=== PATIENT | male | born 1980 | race Caucasian/White ===

== ENCOUNTER 2016-08-02 | Outpatient (CLI) | payer MEDICAID | END 2016-08-02 12:57 | disposition critical access hospital (66) | DX: R44.8 Other symptoms and signs involving general sensations and perceptions (principal) | CPT/HCPCS: A0425; A0429 ==

== ENCOUNTER 2016-08-02 13:03 | Emergency (ER) | payer MEDICAID ==
[2016-08-02] MEDS ORDERED: diazePAM INJ 5 MG/ML SYRINGE IM STA (13:07)
[2016-08-02] MEDS ORDERED: diazePAM INJ 5 MG/ML SYRINGE ONE (13:09)
[2016-08-02] MEDS ORDERED: OLANZapine 10 MG VIAL IM STA (13:47)
[2016-08-02] MEDS ORDERED: WATER FOR INJECTION,STERILE 10 ML ONE (13:52)
[2016-08-02] MEDS ORDERED: OLANZapine 10 MG VIAL IM ONE (13:52)
== END 2016-08-02 15:05 | disposition home or self-care (01) ==
DX: F16.980 Hallucinogen use, unspecified with hallucinogen-induced anxiety disorder (principal); R03.0 Elevated blood-pressure reading, without diagnosis of hypertension; F17.200 Nicotine dependence, unspecified, uncomplicated

== ENCOUNTER 2016-12-05 12:31 | Emergency (ER) | payer MEDICAID ==
[2016-12-05] MEDS ORDERED: cefTRIAXone 1 GM VIAL IM STA (13:37)
--- NOTE | 2016-12-05 13:39 | ED Physician Documentation ---
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 He has now developed redness and markedly increased swelling as well as pain to both lower calves. He has had the swelling previously but never as bad and he has not had the redness ever. He does not feel like he has a fever but he does feel a little "sick" Review of Systems Constitutional: reports: Myalgias, Fatigue. denies: Fever Eyes: denies: Decreased vision Ears: denies: Ear pain Nose: denies: Congestion Throat: denies: Sore throat Cardiac: denies: Chest pain / pressure Respiratory: denies: Cough GI: denies: Abdominal Pain, Nausea, Vomiting : denies: Dysuria, Frequency Skin: reports: Rash (To the calves bilaterally.) Musculoskeletal: reports: Extremity pain, Extremity swelling Neurologic: denies: Generalized weakness, Focal weakness, Numbness PD PAST MEDICAL HISTORY - Past Medical History Past Medical History: No Cardiovascular: None Respiratory: None Neuro: None Endocrine/Autoimmune: None GI: None : None HEENT: None Psych: None Musculoskeletal: None Derm: None - Past Surgical History Past Surgical History: Yes General: Appendectomy, Splenectomy, Other - Present Medications Home Medications: Ambulatory Orders Medication Instructions Recorded Confirmed Amox/Clav 875/125 [Augmentin] 1 each PO Q12H #20 tablet 12/05/16 Multivitamin [Multivitamins] 1 tab PO DAILY 12/05/16 12/05/16 - Allergies Allergies/Adverse Reactions: Allergies Allergy/AdvReac Type Severity Reaction Status Date / Time No Known Drug Allergies Allergy Verified 12/05/16 12:41 - Social History Does the pt smoke?: Yes Smoking Status: Current every day smoker Does the pt drink ETOH?: Yes Does the pt have substance abuse?: No - Immunizations Immunizations are current?: Yes - POLST Patient has POLST: No PD ED PE NORMAL - Vitals Vital signs reviewed: Yes (hypertensive ) - General General: Alert and oriented X 3, No acute distress, Well developed/nourished - HEENT HEENT: Atraumatic, PERRL - Respiratory Respiratory: No respiratory distress - Derm Derm: Normal color, Warm and dry - Extremities Extremities: No deformity, Other (There is edema to both legs and both feet and there is anterior blanching erythema to both calves the left is higher on the calf and just below the knee. ) - Neuro Neuro: Alert and oriented X 3, No motor deficit, No sensory deficit, Normal speech - Psych Psych: Normal mood, Normal affect Results - Vitals Vitals: Vital Signs - 24 hr 12/05/16 12/05/16 12:39 13:16 Temperature 37.4 C Heart Rate 99 115 H Respiratory 18 24 Rate Blood Pressure 153/92 H 126/67 O2 Saturation 99 94 Oxygen O2 Source Room air - Labs Labs: Laboratory Tests 12/05/16 12:53 POC Whole Bld Glucose 91 PD MEDICAL DECISION MAKING - ED course Complexity details: reviewed results, re-evaluated patient, considered differential, d/w patient, d/w family ED course: 36 y/o male with dependant edema and cellulitis is given rocephin IM and we will start him on some augmentin at home. Departure - Departure Disposition: Home, Self Care Clinical Impression: Cellulitis Qualifiers: Site of cellulitis: extremity Site of cellulitis of extremity: lower extremity Laterality: unspecified laterality Qualified Code(s): L03.119 - Cellulitis of unspecified part of limb Condition: Stable Instructions: ED Infec Skin Cellulitis Follow-Up: Otto Hines MD [Primary Care Provider] - Prescriptions: Amox/Clav 875/125 [Augmentin] 1 each PO Q12H #20 tablet Forms: Activity restrictions
[2016-12-05] MEDS ORDERED: cefTRIAXone 1 GM VIAL ONE (13:40)
[2016-12-05] MEDS ORDERED: LIDOCAINE 1% 2 ML VIAL ONE (13:40)
[2016-12-05 14:32] VITALS: BP 140/86
== END 2016-12-05 14:32 | disposition home or self-care (01) ==
LOC: ED 12:31
DX: L03.116 Cellulitis of left lower limb (principal); L03.115 Cellulitis of right lower limb; F17.200 Nicotine dependence, unspecified, uncomplicated
CPT/HCPCS: 96372; 99283

== ENCOUNTER 2016-12-14 19:38 | Outpatient (CLI) | payer MEDICAID ==
--- NOTE | 2016-12-14 21:37 | Ultrasound Preliminary Report ---
Exam: US Duplex Ext Veins Bilateral IMPRESSION: 1. No evidence for deep venous thrombosis bilaterally. 2. Peroneal veins poorly seen. [facility] The call report notification system was initiated by Dr. Tova Suh at 21:12 hrs on 12/14/16. The above findings were discussed with provider Azael Jay by Dr. Tova Suh at 21:35 hrs on 12/14/16. SITE ID: [id number]
--- NOTE | 2016-12-14 21:45 | Ultrasound Report ---
EXAM: BILATERAL LOWER EXTREMITY VENOUS ULTRASOUND EXAM DATE: 12/14/2016 09:04 PM. CLINICAL HISTORY: Leg pain, bilateral. COMPARISON: None. TECHNIQUE: Real-time sonographic vascular imaging was performed by the slat pickler through the lower extremities utilizing both color-flow and Doppler spectral analysis. Multiple parts sales representative static i mages were saved for review. FINDINGS: Right: Common Femoral Vein (CFV): Normal. CFV-GSV Junction: Normal. Profunda Femoral Vein (PFV): Normal. Femoral Vein (FV) Prox: Normal. Femoral Vein (FV) Mid: Normal. Femoral Vein (FV) Dist: Normal. Popliteal Vein: Normal. Posterior Tibial Veins: Normal. Peroneal Veins: Not well seen. Left: Common Femoral Vein (CFV): Normal. CFV-GSV Junction: Normal. Profunda Femoral Vein (PFV): Normal. Femoral Vein (FV) Prox: Normal. Femoral Vein (FV) Mid: Normal. Femoral Vein (FV) Dist: Normal. Popliteal Vein: Normal. Posterior Tibial Veins: Normal. Peroneal Veins: Not well seen. Other: None. IMPRESSION: 1. No evidence for deep venous thrombosis bilaterally. 2. Peroneal veins poorly seen. [facility] The call report notification system was initiated by Dr. Tova Suh at 21:12 hrs on 12/14/16. The above findings were discussed with provider Azael Jay by Dr. Tova Suh at 21:35 hrs on 12/14/16. Referring Provider Line: [phone] SITE ID: [id number]
== END 2016-12-14 19:39 | disposition home or self-care (01) ==
LOC: DI 19:38
PROVIDERS: ATTEND Physician Assistant
DX: M79.606 Pain in leg, unspecified (principal)
CPT/HCPCS: 93970

== ENCOUNTER 2017-02-15 23:45 | Emergency (ER) | payer MEDICAID ==
--- NOTE | 2017-02-16 01:15 | ED Physician Documentation ---
History of Present Illness - Stated complaint Stated Complaint: LEG PX - Chief complaint Chief Complaint: Ext Problem - History obtained from History obtained from: Patient - History of Present Illness Timing: How many weeks ago (6) Improved by: no ameliorating factors Worsened by: no apparent exacerbating factors - Additonal information Additional information: c/o 6 weeks of painful BLE swelling, mild abdominal distention. He has seen his PMD for this and initially was prescribed antibiotic for possible infectious cause, also had US (negative for "blood clots", per patient); he was then prescribed lasix 3 weeks ago but has not had improvement. Denies abdominal pain. Has appointment with PMD scheduled for 11 AM 02/16 Review of Systems Constitutional: denies: Fever, Chills, Sweats Cardiac: denies: Chest pain / pressure Respiratory: denies: Dyspnea GI: reports: Abdominal Swelling. denies: Abdominal Pain, Nausea, Vomiting Musculoskeletal: reports: Extremity pain, Extremity swelling PD PAST MEDICAL HISTORY - Past Medical History Past Medical History: Yes Cardiovascular: None Respiratory: None Neuro: None Endocrine/Autoimmune: None GI: None : None HEENT: None Psych: None Musculoskeletal: None Derm: None - Past Surgical History Past Surgical History: Yes General: Appendectomy, Splenectomy, Other - Present Medications Home Medications: Ambulatory Orders Medication Instructions Recorded Confirmed Furosemide [Lasix] 1 tab PO DAILY 02/15/17 02/15/17 - Allergies Allergies/Adverse Reactions: Allergies Allergy/AdvReac Type Severity Reaction Status Date / Time No Known Drug Allergies Allergy Verified 02/15/17 23:51 - Social History Does the pt smoke?: Yes Smoking Status: Current every day smoker Does the pt drink ETOH?: Yes Does the pt have substance abuse?: No - Immunizations Immunizations are current?: Yes - POLST Patient has POLST: No PD ED PE NORMAL - Vitals Vital signs reviewed: Yes - General General: Alert and oriented X 3, No acute distress, Well developed/nourished - Cardiac Cardiac: RRR, No murmur - Respiratory Respiratory: No respiratory distress, Clear bilaterally - Abdomen Abdomen: Soft - Back Back: No CVA TTP - Derm Derm: Normal color PD ED PE EXPANDED - Eyes Eyes: Scleral icterus - Abdomen Abdomen: Distended. No: Tender to palpation - Extremities Extremities: Pedal edema bilateral (pitting BLE edema distal to knees) Results - Vitals Vitals: Vital Signs - 24 hr 02/15/17 02/16/17 23:52 03:26 Temperature 37.0 C 36.7 C Heart Rate 78 96 Respiratory 18 15 Rate Blood Pressure 140/91 H 141/66 H O2 Saturation 100 96 Oxygen O2 Source Room air - Labs Labs: Laboratory Tests 02/16/17 02/16/17 02/16/17 01:40 01:40 01:40 WBC 13.2 H RBC 3.40 L Hgb 12.9 L Hct 36.7 L MCV 108.1 H MCH 37.9 H MCHC 35.0 RDW 17.1 H Plt Count 156 MPV 8.5 Neut # Not Reportable Lymph # Not Reportable [place] # Not Reportable Eos # Not Reportable Baso # Not Reportable Absolute Nucleated RBC Not Reportable Total Counted 100 Band Neuts % (Manual) 6 Neutrophils # (Manual) 8.4 H Lymphocytes # (Manual) 2.6 Monocytes # (Manual) 1.5 H Eosinophils # (Manual) 0.4 Basophils # (Manual) 0.3 H Nucleated RBCs Not Reportable Differential Comment MANUAL DIFFERENTIAL Platelet Estimate NORMAL (130-450,000) RBC Morph Micro Appear NORMAL APPEARANCE Sodium 133 L Potassium 3.5 Chloride 102 Carbon Dioxide 24 Anion Gap 7.0 BUN 7 Creatinine 0.5 L Estimated GFR (MDRD) 190 Glucose 87 Calcium 7.7 L Total Bilirubin 8.2 H AST 165 H ALT 56 Alkaline Phosphatase 212 H B-Natriuretic Peptide 144 H Total Protein 8.2 Albumin 1.8 L Globulin 6.3 H Albumin/Globulin Ratio 0.3 L Lipase 50 PD MEDICAL DECISION MAKING - ED course Complexity details: reviewed results, re-evaluated patient, considered differential, d/w patient Departure - Departure Disposition: 01 Home, Self Care Clinical Impression: Hyperbilirubinemia Condition: Good Instructions: ED Edema Legs Bilateral Discharge Date/Time: 02/16/17 03:38
[2017-02-16 01:45] LABS: BASOPHILS % (AUTO) 1.3 %; EOSINOPHILS % (AUTO) 1.6 %; HCT - HEMATOCRIT 36.7 % (42.0-52.0); HGB - HEMOGLOBIN 12.9 g/dL (14.0-18.0); LYMPHOCYTES % (AUTO) 28.3 %; MEAN CORPUSCULAR HEMOGLOBIN 37.9 pg (27.0-31.0); MEAN CORPUSCULAR VOLUME 108.1 fL (80.0-94.0); MEAN PLATELET VOLUME 8.5 fL (7.4-11.4); MONOCYTES % (AUTO) 17.5 %; NEUTROPHILS % (AUTO) 51.3 %; RED CELL DISTRIBUTION WIDTH 17.1 % (12.0-15.0); UNCORRECTED WHITE BLOOD COUNT 13.2 x10^3/uL; WHITE BLOOD COUNT 13.2 x10^3/uL (4.8-10.8)
[2017-02-16 01:57] LABS: ALBUMIN/GLOBULIN RATIO 0.3 (1.0-2.2); BILIRUBIN,TOTAL 8.2 mg/dL (0.2-1.0); CALCIUM 7.7 mg/dL (8.5-10.3); CREATININE 0.5 mg/dL (0.6-1.2); POTASSIUM 3.5 mmol/L (3.5-5.0); TOTAL PROTEIN 8.2 g/dL (6.7-8.2)
[2017-02-16 02:18] LABS: BAND NEUTROPHILS % (MANUAL) 6 %; BASOPHILS % (MANUAL) 2 %; EOSINOPHILS % (MANUAL) 3 %; LYMPHOCYTES % (MANUAL) 20 %; NEUTROPHILS % (MANUAL) 58 %; NP AUTO DIFFERENTIAL? YES; NP MAN DIFFERENTIAL? NO; PLATELET ESTIMATE, MANUAL NORMAL (130-450,000) (NORMAL); TOTAL CELLS COUNTED 100
[2017-02-16 03:26] VITALS: BP 141/66
== END 2017-02-16 03:38 | disposition home or self-care (01) ==
LOC: ED 23:45
DX: E80.6 Other disorders of bilirubin metabolism (principal); R60.0 Localized edema; F17.200 Nicotine dependence, unspecified, uncomplicated
CPT/HCPCS: 36415; 80053; 83690; 83880; 85025; 99282; 99283

== ENCOUNTER 2017-02-20 15:26 | Outpatient (CLI) | payer MEDICAID ==
--- NOTE | 2017-02-20 16:56 | Ultrasound Report ---
EXAM: ABDOMEN ULTRASOUND EXAM DATE: 02/20/2017 04:06 PM. CLINICAL HISTORY: ABDOMINAL Distension, abdominal TRANSAMINASES. COMPARISON: CT dated 07/21/2007. TECHNIQUE: Real-time scanning was performed with static images obtained. FINDINGS: Liver: Heterogeneous with an irregular nodular. No Definite Mass. Mildly Enlarged, 18.3 cm. Main port al vein flow: Hepatopetal. Gallbladder: Probable sludge. No definite stone area minimal wall thickening measuring 3.3 mm, a nons pecific finding. No localized tenderness. Biliary System: Common bile duct measures 4.9 mm. No intrahepatic or extrahepatic ductal dilatation. Pancreas: Not well seen. Kidneys: Right: 12.1 cm longitudinally. Normal. No contour-deforming mass, stones, or hydronephrosis. Left: 12.5 cm longitudinally. Normal. No contour-deforming mass, stones, or hydronephrosis. Spleen: Surgically absent. Aorta and Inferior Vena Cava: Unremarkable. Other: Small to moderate amount of ascites. IMPRESSION: 1. Cirrhosis, mild hepatomegaly. 2. Ascites. 3. Minimal gallbladder wall thickening. [facility] Referring Provider Line: [phone] SITE ID: [id number]
== END 2017-02-20 15:27 | disposition home or self-care (01) ==
LOC: DI 15:26
PROVIDERS: ATTEND Family Medicine
DX: K74.60 Unspecified cirrhosis of liver (principal); R16.0 Hepatomegaly, not elsewhere classified; R18.8 Other ascites; K82.9 Disease of gallbladder, unspecified
CPT/HCPCS: 76700

== ENCOUNTER 2017-03-09 17:01 | Outpatient (CLI) | payer SELFPAY ==
[2017-03-09 17:35] LABS: ALBUMIN/GLOBULIN RATIO 0.3 (1.0-2.2); BILIRUBIN,TOTAL 4.1 mg/dL (0.2-1.0); CREATININE 0.6 mg/dL (0.6-1.2); POTASSIUM 3.3 mmol/L (3.5-5.0); TOTAL PROTEIN 8.6 g/dL (6.7-8.2)
== END 2017-03-09 17:02 | disposition home or self-care (01) ==
LOC: LAB 17:01
PROVIDERS: ATTEND Family Medicine
DX: R18.8 Other ascites (principal); K70.30 Alcoholic cirrhosis of liver without ascites
CPT/HCPCS: 36415; 80053

== ENCOUNTER 2017-03-26 15:44 | Outpatient (CLI) | payer SELFPAY ==
[2017-03-26 16:31] LABS: ALBUMIN/GLOBULIN RATIO 0.3 (1.0-2.2); BILIRUBIN,TOTAL 4.4 mg/dL (0.2-1.0); CALCIUM 8.1 mg/dL (8.5-10.3); CREATININE 0.6 mg/dL (0.6-1.2); TOTAL PROTEIN 8.3 g/dL (6.7-8.2)
== END 2017-03-26 15:45 | disposition home or self-care (01) ==
LOC: LAB 15:44
PROVIDERS: ATTEND Family Medicine
DX: K70.31 Alcoholic cirrhosis of liver with ascites (principal); R18.8 Other ascites
CPT/HCPCS: 36415; 80053

== ENCOUNTER 2017-04-02 16:14 | Outpatient (CLI) | payer MEDICAID ==
[2017-04-02 16:45] LABS: ALBUMIN/GLOBULIN RATIO 0.3 (1.0-2.2); CALCIUM 8.1 mg/dL (8.5-10.3); CREATININE 0.7 mg/dL (0.6-1.2); POTASSIUM 4.2 mmol/L (3.5-5.0); TOTAL PROTEIN 9.2 g/dL (6.7-8.2)
[2017-04-02 17:00] LABS: INR 2.1 (0.8-1.2); PT - PROTHROMBIN TIME 23.6 secs (9.9-12.6)
== END 2017-04-02 16:15 | disposition home or self-care (01) ==
LOC: LAB 16:14
PROVIDERS: ATTEND Family Medicine
DX: R18.8 Other ascites (principal); K70.31 Alcoholic cirrhosis of liver with ascites
CPT/HCPCS: 36415; 80053; 82140; 85610

== ENCOUNTER 2017-04-10 16:42 | Outpatient (CLI) | payer MEDICAID ==
[2017-04-10 17:08] LABS: BASOPHILS # (AUTO) 0.1 10^3/uL (0.0-0.1); BASOPHILS % (AUTO) 1.4 %; EOSINOPHILS # (AUTO) 0.3 10^3/uL (0.0-0.7); EOSINOPHILS % (AUTO) 3.4 %; HCT - HEMATOCRIT 37.9 % (42.0-52.0); HGB - HEMOGLOBIN 13.1 g/dL (14.0-18.0); LYMPHOCYTES # (AUTO) 3.1 10^3/uL (1.5-3.5); LYMPHOCYTES % (AUTO) 34.6 %; MEAN CORPUSCULAR HEMOGLOBIN 37.2 pg (27.0-31.0); MEAN CORPUSCULAR HGB CONC 34.6 g/dL (32.0-36.0); MEAN CORPUSCULAR VOLUME 107.6 fL (80.0-94.0); MEAN PLATELET VOLUME 7.9 fL (7.4-11.4); MONOCYTES # (AUTO) 1.2 10^3/uL (0.0-1.0); MONOCYTES % (AUTO) 13.5 %; NEUTROPHILS # (AUTO) 4.2 10^3/uL (1.5-6.6); NEUTROPHILS % (AUTO) 47.1 %; NUCLEATED RED BLOOD CELLS AUTO 0.2 /100WBC; RED BLOOD COUNT 3.52 10^6/uL (4.70-6.10); RED CELL DISTRIBUTION WIDTH 14.4 % (12.0-15.0)
[2017-04-10 17:14] LABS: ALBUMIN/GLOBULIN RATIO 0.3 (1.0-2.2); BILIRUBIN,TOTAL 4.2 mg/dL (0.2-1.0); CALCIUM 8.1 mg/dL (8.5-10.3); CREATININE 0.7 mg/dL (0.6-1.2); POTASSIUM 3.7 mmol/L (3.5-5.0); TOTAL PROTEIN 8.5 g/dL (6.7-8.2)
[2017-04-10 17:21] LABS: INR 2.3 (0.8-1.2); PT - PROTHROMBIN TIME 26.4 secs (9.9-12.6)
== END 2017-04-10 16:43 | disposition home or self-care (01) ==
LOC: LAB 16:42
PROVIDERS: ATTEND Family Medicine
DX: K70.31 Alcoholic cirrhosis of liver with ascites (principal)
CPT/HCPCS: 36415; 80053; 82140; 85025; 85610

== ENCOUNTER 2017-04-14 13:37 | Inpatient (IN) | payer MEDICAID ==
[2017-04-14] MEDS ORDERED: SODIUM CHLORIDE FLUSH 0.9% 10 ML SYRINGE IVP ONE ×2 (14:08→15:04)
--- NOTE | 2017-04-14 14:20 | ED Physician Documentation ---
PD HPI DYSPNEA - Stated complaint Stated Complaint: DIFF BREATHING - Chief complaint Chief Complaint: Resp - History obtained from History obtained from: Patient - History of Present Illness Timing - onset: How many days ago (few) Timing - onset during: Rest (the past 1-2 days, worse lying flat), Light activity Timing - duration: Days Timing - details: Gradual onset, Still present (worse since last night), Still present in ED Inciting event(s): Other (abd distension and legs swelling.). No: URI Improved by: Rest, Sitting up Worsened by: Exertion, Laying flat Associated symptoms: Cough, Wheezing, Bilateral edema. No: Fever, Hemoptysis, Chest pain / discomfort, Palpitations Similar symptoms before: Has not had sx before (has not had dyspnea like this in the past.) Recently seen: Clinic (first visit with Liver specialist/GI last week, but not meds/etc, just orders for more blood tests.) Review of Systems Constitutional: denies: Fever, Chills Nose: denies: Rhinorrhea / runny nose, Congestion Throat: denies: Sore throat Cardiac: denies: Chest pain / pressure, Palpitations Respiratory: reports: Dyspnea, Cough (mild, nonproductive), Wheezing GI: reports: Abdominal Swelling (for several weeks, with much worse the past several days.). denies: Vomiting, Diarrhea, Bloody / black stool : denies: Dysuria, Frequency Skin: denies: Rash, Lesions Neurologic: reports: Generalized weakness. denies: Focal weakness, Near syncope Endocrine: reports: Easy bruising / bleeding. denies: Weight loss PD PAST MEDICAL HISTORY - Past Medical History Cardiovascular: None Respiratory: None Neuro: None Endocrine/Autoimmune: None GI: None, Cirrhosis : None HEENT: None Psych: None Musculoskeletal: None Derm: None - Past Surgical History Past Surgical History: Yes General: Appendectomy, Splenectomy, Other - Present Medications Home Medications: Ambulatory Orders Medication Instructions Recorded Confirmed Furosemide [Lasix] 1 tab PO DAILY 02/15/17 04/14/17 Spironolactone 25 mg PO DAILY 04/14/17 04/14/17 - Allergies Allergies/Adverse Reactions: Allergies Allergy/AdvReac Type Severity Reaction Status Date / Time No Known Drug Allergies Allergy Verified 04/14/17 13:47 - Social History Does the pt smoke?: Yes Smoking Status: Current every day smoker Does the pt drink ETOH?: Yes Does the pt have substance abuse?: No - Immunizations Immunizations are current?: Yes - POLST Patient has POLST: No PD ED PE NORMAL - Vitals Vital signs reviewed: Yes - General General: Alert and oriented X 3, Well developed/nourished, Other (has work of breathing, without retractions. ) - HEENT HEENT: Atraumatic - Neck Neck: Supple, no meningeal sign, No adenopathy - Cardiac Cardiac: RRR (tachycardic), No murmur, No rub - Respiratory Respiratory: No: Clear bilaterally (there is fine crackles at bases, some scattered mild wheezing. No coarse wet sounds. ) - Abdomen Abdomen: Other (very distended abdomen with tenderness. Shifting dullness to percussion. ). No: Normal bowel sounds (diminished) - Male Male : Deferred - Rectal Rectal: Deferred - Back Back: No CVA TTP - Derm Derm: No: Normal color (mild jaundice.) - Extremities Extremities: Normal ROM s pain, Other (2+ edema in both legs up to knees. ) - Neuro Neuro: Alert and oriented X 3, No motor deficit, No sensory deficit, Normal speech Results - Vitals Vitals: Vital Signs - 24 hr 04/14/17 04/14/17 04/14/17 13:42 15:08 16:07 Temperature 37.2 C Heart Rate 113 H 113 H 113 H Respiratory 16 20 25 H Rate Blood Pressure 159/98 H 147/86 H O2 Saturation 90 L 95 04/14/17 17:28 Temperature Heart Rate 109 H Respiratory 25 H Rate Blood Pressure 148/78 H O2 Saturation 95 Oxygen O2 Source Room air - Labs Labs: Microbiology 04/14/17 17:18 Body Fluid Culture - Preliminary Peritoneal Fluid Laboratory Tests 04/14/17 04/14/17 04/14/17 14:10 14:10 14:10 WBC 11.1 H RBC 3.52 L Hgb 12.9 L Hct 36.9 L MCV 104.9 H MCH 36.6 H MCHC 34.9 RDW 14.3 Plt Count 183 MPV 8.5 Neut # Not Reportable Lymph # Not Reportable [place] # Not Reportable Eos # Not Reportable Baso # Not Reportable Absolute Nucleated RBC Not Reportable Band Neuts % (Manual) 2 Nucleated RBC % Not Reportable Neutrophils # (Manual) 6.8 H Lymphocytes # (Manual) 2.1 Monocytes # (Manual) 1.9 H Eosinophils # (Manual) 0.2 Basophils # (Manual) 0.1 Platelet Estimate NORMAL (130-450,000) RBC Morph Micro Appear 1+ MACROCYTOSIS PT INR APTT Sodium 136 Potassium 4.1 Chloride 100 L Carbon Dioxide 25 Anion Gap 11.0 BUN 10 Creatinine 0.6 Estimated GFR (MDRD) 154 Glucose 81 Calcium 8.5 Magnesium 1.5 L Total Bilirubin 5.1 H AST 79 H ALT 32 Alkaline Phosphatase 155 H Ammonia B-Natriuretic Peptide 105 H Total Protein 9.3 H Albumin 2.0 L Globulin 7.3 H Albumin/Globulin Ratio 0.3 L Lipase 53 H Fluid Source Fluid Color Fluid Clarity Fluid WBC Fluid RBC Fluid Neutrophils % Fluid Lymphocytes % Fluid Monocytes % Fluid Macrophages % Fld Mesothelial Cell % Ethyl Alcohol 04/14/17 04/14/17 04/14/17 14:10 16:13 16:13 WBC RBC Hgb Hct MCV MCH MCHC RDW Plt Count MPV Neut # Lymph # [place] # Eos # Baso # Absolute Nucleated RBC Band Neuts % (Manual) Nucleated RBC % Neutrophils # (Manual) Lymphocytes # (Manual) Monocytes # (Manual) Eosinophils # (Manual) Basophils # (Manual) Platelet Estimate RBC Morph Micro Appear PT 26.2 H INR 2.3 H APTT 42.7 H Sodium Potassium Chloride Carbon Dioxide Anion Gap BUN Creatinine Estimated GFR (MDRD) Glucose Calcium Magnesium Total Bilirubin AST ALT Alkaline Phosphatase Ammonia 23.6 B-Natriuretic Peptide Total Protein Albumin Globulin Albumin/Globulin Ratio Lipase Fluid Source Fluid Color Fluid Clarity Fluid WBC Fluid RBC Fluid Neutrophils % Fluid Lymphocytes % Fluid Monocytes % Fluid Macrophages % Fld Mesothelial Cell % Ethyl Alcohol < 5.0 04/14/17 17:18 WBC RBC Hgb Hct MCV MCH MCHC RDW Plt Count MPV Neut # Lymph # [place] # Eos # Baso # Absolute Nucleated RBC Band Neuts % (Manual) Nucleated RBC % Neutrophils # (Manual) Lymphocytes # (Manual) Monocytes # (Manual) Eosinophils # (Manual) Basophils # (Manual) Platelet Estimate RBC Morph Micro Appear PT INR APTT Sodium Potassium Chloride Carbon Dioxide Anion Gap BUN Creatinine Estimated GFR (MDRD) Glucose Calcium Magnesium Total Bilirubin AST ALT Alkaline Phosphatase Ammonia B-Natriuretic Peptide Total Protein Albumin Globulin Albumin/Globulin Ratio Lipase Fluid Source PERITONIAL Fluid Color YELLOW Fluid Clarity HAZY Fluid WBC 184 Fluid RBC 3664 Fluid Neutrophils % 8 Fluid Lymphocytes % 24 Fluid Monocytes % 17 Fluid Macrophages % 42 Fld Mesothelial Cell % 9 Ethyl Alcohol - Rads (name of study) chest Radiology: Prelim report reviewed, EMP read contemporaneously (new interstitial prominence c/w edema. Small right effusion. ) Procedures - Paracentesis Preparation: Consent obtained (verbal from patient and mother, with explanation of procedure and questions answered.), Ultrasound guidance, Sterile prep and drape, Local anesthesia Location: RLQ Technique: Z-tract, Catheter over needle Fluid: Clear, Sent for cell count, Sent for gram stain, Sent for culture, Sent for albumin, Sent for glucose, Sent for protein, Volume - enter cc (2300), Sent for cytology (Hospitalist orders) Aftercare: No complications (I was hoping for more volume out, but it stopped draining into the 3rd vacuum bottle despite repositioning, presume was sucking some omentum or such. No blood in the fluid.), Patient tolerated well, Dressing applied, Bleeding - comment (mild from skin site, stopped with direct pressure.) . No: Fluid leak - comment PD MEDICAL DECISION MAKING - ED course Complexity details: reviewed results (he appears to be in fluid overload with ascites, leg edema, and pulmonary edema. Some dyspnea from ascites pushing diaphragm and can do paracentesis. However, CXR does look like interstitial lung fluid as well. ), re-evaluated patient (some mild improvement with Albuterol neb. He did have fine crackles at bases and given diuretics here. Presume mechanical effect on breathing with the ascites, and discussed and then did paracentesis with patient. He did seem to have improved breathing with this. Still needs further care and diuresis, check albumin, watch vitals, etc. and Hositalist agreed to the admission. ), considered differential, d/w patient Departure - Departure Disposition: 66 [facility] DC/Xfer Clinical Impression: Dyspnea Qualifiers: Dyspnea type: shortness of breath Qualified Code(s): R06.02 - Shortness of breath Cirrhosis of liver Qualifiers: Hepatic cirrhosis type: alcoholic cirrhosis Ascites presence: with ascites Qualified Code(s): K70.31 - Alcoholic cirrhosis of liver with ascites Pulmonary edema Qualifiers: Chronicity: acute Qualified Code(s): J81.0 - Acute pulmonary edema Ascites Qualifiers: Ascites type: due to alcoholic cirrhosis Qualified Code(s): K70.31 - Alcoholic cirrhosis of liver with ascites Condition: Stable Record reviewed to determine appropriate education?: Yes Discharge Date/Time: 04/14/17 19:25
[2017-04-14] MEDS ORDERED: FUROSEMIDE 40 MG/4 ML VIAL IVP STA ×2 (14:53→16:02)
[2017-04-14] MEDS ORDERED: ALBUTEROL NEB 2.5 MG/3 ML INH STA (14:53)
[2017-04-14] MEDS ORDERED: FUROSEMIDE 40 MG/4 ML VIAL ONE ×2 (15:05→17:22)
[2017-04-14] MEDS ORDERED: ALBUTEROL NEB 2.5 MG/3 ML INH ONE (15:06)
[2017-04-14 15:10] LABS: BASOPHILS % (AUTO) 0.8 %; EOSINOPHILS % (AUTO) 1.3 %; HCT - HEMATOCRIT 36.9 % (42.0-52.0); HGB - HEMOGLOBIN 12.9 g/dL (14.0-18.0); LYMPHOCYTES % (AUTO) 26.6 %; MEAN CORPUSCULAR HEMOGLOBIN 36.6 pg (27.0-31.0); MEAN CORPUSCULAR HGB CONC 34.9 g/dL (32.0-36.0); MEAN CORPUSCULAR VOLUME 104.9 fL (80.0-94.0); MEAN PLATELET VOLUME 8.5 fL (7.4-11.4); MONOCYTES % (AUTO) 16.4 %; NEUTROPHILS % (AUTO) 54.9 %; RED BLOOD COUNT 3.52 10^6/uL (4.70-6.10); RED CELL DISTRIBUTION WIDTH 14.3 % (12.0-15.0); UNCORRECTED WHITE BLOOD COUNT 11.1 x10^3/uL; WHITE BLOOD COUNT 11.1 x10^3/uL (4.8-10.8)
[2017-04-14 15:16] LABS: INR 2.3 (0.8-1.2); PT - PROTHROMBIN TIME 26.2 secs (9.9-12.6)
[2017-04-14 15:20] LABS: ALBUMIN/GLOBULIN RATIO 0.3 (1.0-2.2); BILIRUBIN,TOTAL 5.1 mg/dL (0.2-1.0); CALCIUM 8.5 mg/dL (8.5-10.3); CREATININE 0.6 mg/dL (0.6-1.2); MAGNESIUM 1.5 mg/dL (1.7-2.8); POTASSIUM 4.1 mmol/L (3.5-5.0); TOTAL PROTEIN 9.3 g/dL (6.7-8.2)
[2017-04-14 15:24] LABS: PARTIAL THROMBOPLASTIN TIME 42.7 secs (24.9-33.3)
--- NOTE | 2017-04-14 15:24 | XRAY Preliminary Report ---
Exam: XR CHEST 1 VIEW IMPRESSION: 1. New vascular and interstitial prominence, small to moderate-sized right pleural effusion and assoc iated right lower lung opacity and possible very small left pleural effusion. This may represent katerina estive heart failure. Right-sided pneumonia is not excluded. [facility] SITE ID: [id number]
--- NOTE | 2017-04-14 15:27 | XRAY Report ---
EXAM: CHEST RADIOGRAPHY EXAM DATE: 04/14/2017 03:09 PM. CLINICAL HISTORY: Dyspnea. COMPARISON: 2 views 06/16/2014. TECHNIQUE: 1 view. FINDINGS: Lungs/Pleura: Bilateral diminished lung volumes. Lateral vascular prominence and diffuse interstitial prominence may represent pulmonary edema. New sm all to moderate-sized right pleural effusion and associated right mid and lower lung opacity which co uld representing underlying atelectasis. Underlying acute infiltrates or other process is not exclude d. Very small left pleural effusion not excluded. Mediastinum: Within exam limitations, no bong cardiac enlargement although the right cardiac margin is obscured by hemithorax opacity. Other: None. IMPRESSION: 1. New vascular and interstitial prominence, small to moderate-sized right pleural effusion and assoc iated right lower lung opacity and possible very small left pleural effusion. This may represent katerina estive heart failure. Right-sided pneumonia is not excluded. [facility] Referring Provider Line: [phone] SITE ID: [id number]
[2017-04-14] MEDS ORDERED: MAGNESIUM SULFATE 2 GRAM 2 GM/50 ML BAG IV ONE ×2 (15:36→17:22)
[2017-04-14 16:07] LABS: BAND NEUTROPHILS % (MANUAL) 2 %; BASOPHILS % (MANUAL) 1 %; EOSINOPHILS % (MANUAL) 2 %; LYMPHOCYTES % (MANUAL) 19 %; NEUTROPHILS % (MANUAL) 59 %; NP AUTO DIFFERENTIAL? YES; NP MAN DIFFERENTIAL? NO; PLATELET ESTIMATE, MANUAL NORMAL (130-450,000) (NORMAL)
[2017-04-14] MEDS ORDERED: LIDOCAINE 1%-EPI 1:100000 20 ML MDV SUBQ STA (16:37)
[2017-04-14] MEDS ORDERED: LIDOCAINE MPF 2%-EPI 1:200000 20 ML VIAL ONE (16:47)
[2017-04-14] MEDS ORDERED: ONDANSETRON 4 MG/2 ML VIAL IVP PRN (17:57)
[2017-04-14] MEDS ORDERED: ALBUMIN 25% 12.5 GM/50 ML VIAL IV SCH (18:14)
[2017-04-14 18:34] LABS: CC,BF RBC 3664 /mm^3
[2017-04-14 19:32] LABS: BF CLARITY HAZY; BF COLOR YELLOW; LYMPHOCYTES %,BODY FLUID 24; MACROPHAGES %,BODY FLUID 42 %; MESOTHELIAL %, BF 9 %; MONOCYTES %,BODY FLUID 17 %; NEUTROPHILS %, BF 8 %
--- NOTE | 2017-04-14 19:45 | HISTORY & PHYSICAL EXAMINATION ---
DATE OF ADMISSION: 04/14/2017 CODE STATUS: DO NOT RESUSCITATE. PRIMARY CARE PROVIDER: Dr. Hutchinson. EXAM LIMITATIONS: None. The records were reviewed. SOURCE OF INFORMATION: The patient and his mother. CHIEF COMPLAINT: Shortness of breath and uncomfortable abdomen. ADVANCED DIRECTIVE: The patient does not have advanced directive. HISTORY OF PRESENT ILLNESS: The patient, a 36-year-old white male, has had a distended abdomen that has been becoming more painful over the last 6 months, and the distended abdomen is resulting from cirrhosis and ascites buildup. The shortness of breath became worse throughout the night, bringing him into the ER. DRUG ALLERGIES: NONE. HOME MEDICATIONS 1. Lasix 20 mg 1 tab p.o. every day. 2. Spironolactone 25 mg 2 tabs p.o. twice a day. 3. Lomotil 1-2 tabs 4 times a day p.r.n. PAST MEDICAL HISTORY: Asthma and cirrhosis with ascites. FAMILY HISTORY: Maternal grandfather, diabetes mellitus. Three maternal aunts with thyroid disease. Paternal grandmother and paternal grandfather with lung cancer. Maternal grandfather with prostate cancer and mother with coronary artery disease. PAST SURGICAL HISTORY: Splenectomy, appendectomy, bilateral Achilles heel surgeries, and cataract surgery. SOCIAL HISTORY: He is single. He has no children. 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 Smoking history: One pack per day for 20 years. Alcohol history: Alcohol abuse. He stopped drinking 9 weeks ago. Marijuana use. He still smokes. He lives at home. REVIEW OF SYSTEMS RESPIRATORY: Shortness of breath secondary to ascites. HEART: No chest pain, no palpitations. ABDOMEN: Distended and diffusely tender. There is no constipation, no diarrhea, no bloating, no nausea, no vomiting. URINARY: No burning urine, no frequency. HEAD: No headaches. EYES: No blurred vision. EARS: No ear pain or tinnitus. NOSE: No runny nose. THROAT: No pain or redness. MUSCULOSKELETAL: There is lower back pain. JOINTS: There is right and left knee pain and right and left ankle pain. NEUROLOGICAL: There are paresthesias. WEAKNESS AND FATIGUE: Yes. FEVER: No. PHYSICAL EXAMINATION VITAL SIGNS: Temperature of 37.2 degrees, pulse of 113 and respiratory rate of 16, a blood pressure of 159/98, O2 saturation of 90% on room air. GENERAL: He is alert, cooperative, and has a distended abdomen. HEENT: Head is atraumatic, normocephalic. Eyes are PERRLA, EOMI. Sclerae are icteric. NECK: Supple. No JVD, no bruits, no thyroid enlargement. No adenopathy. HEART: Tachycardia. LUNGS: There is wheezing. ABDOMEN: Positive for bowel sounds, distended, diffusely tender. No rebound, no guarding. EXTREMITIES: Warm. There is +2 pedal edema. There is 5/5 muscle strength in upper and lower extremities. NEUROLOGIC: He is oriented x3, follows commands, moves all 4 extremities. Cranial nerves 2-12 are intact. LABORATORY DATA: His magnesium is 1.5. AST is 79. ALT is 32. Alkaline phosphatase is 55. Sodium is 136. Potassium is 4.1. Chloride is 100. Bicarbonate is 25. BUN is 10. Creatinine is 0.6. Glucose is 81. White blood cells are 11.1. Hemoglobin is 12.9., hematocrit 36.9, and platelets are 183, 000. PT is 26.2. INR is 2.3. PTT is 42.7. BNP is 105. Total protein is 9.3. Albumin is 2. Globulin is 7.3. Lipase is 53. Ethyl alcohol is less than 5. EKG shows SVT. CHEST X-RAY: There is new vascular and interstitial pneumonia, small to moderate -sized right pleural effusions, associated right lower lobe opacity, and possible very small left pleural effusion. This may represent congestive heart failure. Right-sided pneumonia is not excluded. ASSESSMENT AND PLAN 1. Right-sided pneumonia, for which he will be on IV Solu-Medrol, DuoNeb, IV Zosyn and IV Flagyl. 2. Cirrhosis with ascites. He received IV albumin, and, he got paracentesis, 3 liters. The paracentesis fluid was sent for protein, albumin, cell count, cytology, aerobic and anaerobic cultures, Gram stains, check for TB. He will get a CBC and a CMP in a.m. He will be on IV Protonix to prevent stress ulcer. He will be on IV Zofran for nausea. The cirrhosis/ascites will also be treated with spironolactone and Lasix. 3. He will be in the ICU. His anticipated length of stay is 3 days. JOB #: [id number] EXT JOB #:[id number] YAYA
[2017-04-14] MEDS: FUROSEMIDE 20 MG/2 ML VIAL IVP SCH (20:25)
[2017-04-14] MEDS: methylPREDNISolone SUCCINATE 40 MG/ML VIAL IVP SCH (20:28)
[2017-04-14] MEDS ORDERED: SPIRONOLACTONE 25 MG TABLET PO SCH (21:00)
[2017-04-14] MEDS: PIPERACILLIN/TAZOBACTAM 3.375 GM in SODIUM CHLORIDE 0.9% MINIBAG 100 ML IV SCH (21:50)
[2017-04-14] MEDS: SODIUM CHLORIDE FLUSH 0.9% 10 ML SYRINGE IVP SCH (21:50)
[2017-04-14] MEDS: SPIRONOLACTONE 25 MG TABLET PO SCH (21:50)
[2017-04-15] MEDS: methylPREDNISolone SUCCINATE 40 MG/ML VIAL IVP SCH ×4 (00:41→17:56)
[2017-04-15] MEDS: metroNIDAZOLE 500 MG/100 ML 250 MG/50 ML BAG IV SCH ×2 (00:41→06:38)
[2017-04-15] MEDS: SODIUM CHLORIDE FLUSH 0.9% 10 ML SYRINGE IVP PRN (00:42)
[2017-04-15] MEDS: IPRATROPIUM/ALBUTEROL 3 ML NEB INH PRN ×3 (02:15→23:55)
[2017-04-15 05:08] LABS: BASOPHILS % (AUTO) 0.2 %; HCT - HEMATOCRIT 34.5 % (42.0-52.0); HGB - HEMOGLOBIN 12.2 g/dL (14.0-18.0); LYMPHOCYTES # (AUTO) 0.8 10^3/uL (1.5-3.5); MEAN CORPUSCULAR HEMOGLOBIN 37.5 pg (27.0-31.0); MEAN CORPUSCULAR HGB CONC 35.4 g/dL (32.0-36.0); MEAN PLATELET VOLUME 8.1 fL (7.4-11.4); MONOCYTES # (AUTO) 0.2 10^3/uL (0.0-1.0); MONOCYTES % (AUTO) 2.1 %; NEUTROPHILS # (AUTO) 7.5 10^3/uL (1.5-6.6); NEUTROPHILS % (AUTO) 88.7 %; NUCLEATED RED BLOOD CELLS AUTO 0.2 /100WBC; RED BLOOD COUNT 3.26 10^6/uL (4.70-6.10); UNCORRECTED WHITE BLOOD COUNT 9.2 x10^3/uL; WHITE BLOOD COUNT 8.4 x10^3/uL (4.8-10.8)
[2017-04-15 05:14] LABS: ALBUMIN/GLOBULIN RATIO 0.3 (1.0-2.2); BILIRUBIN,TOTAL 5.1 mg/dL (0.2-1.0); CALCIUM 8.1 mg/dL (8.5-10.3); CREATININE 0.7 mg/dL (0.6-1.2); MAGNESIUM 1.8 mg/dL (1.7-2.8); PHOSPHORUS 5.1 mg/dL (2.5-4.6); POTASSIUM 3.8 mmol/L (3.5-5.0); TOTAL PROTEIN 8.8 g/dL (6.7-8.2)
[2017-04-15 05:35] LABS: PLATELET ESTIMATE, MANUAL NORMAL (130-450,000) (NORMAL)
[2017-04-15] MEDS: PIPERACILLIN/TAZOBACTAM 3.375 GM in SODIUM CHLORIDE 0.9% MINIBAG 100 ML IV SCH ×3 (06:40→22:26)
[2017-04-15] MEDS: PANTOPRAZOLE 40 MG VIAL IVP SCH (06:41)
[2017-04-15] MEDS: SODIUM CHLORIDE FLUSH 0.9% 10 ML SYRINGE IVP SCH ×3 (06:41→22:26)
[2017-04-15] MEDS ORDERED: cefTRIAXone 1 GM in SODIUM CHLORIDE 0.9% MINIBAG 100 ML IV SCH (09:00)
[2017-04-15] MEDS: SPIRONOLACTONE 25 MG TABLET PO SCH ×2 (09:52→20:40)
[2017-04-15] MEDS: FUROSEMIDE 20 MG/2 ML VIAL IVP SCH (09:52)
[2017-04-15] MEDS: metroNIDAZOLE 500 MG/100 ML 500 MG/100 ML BAG IV SCH ×2 (12:32→18:09)
[2017-04-15] MEDS: VANCOMYCIN 2 GM/NS 500 ML 2 GM/500 ML BAG IV SCH (15:46)
[2017-04-15] MEDS: FUROSEMIDE 40 MG/4 ML VIAL IVP SCH (20:39)
--- NOTE | 2017-04-15 20:51 | XRAY Preliminary Report ---
Exam: XR CHEST 1 VIEW IMPRESSION: Moderate to large right pleural effusion, increased since the previous exam. Slight decre ase in interstitial edema. [facility] SITE ID: [id number]
--- NOTE | 2017-04-15 20:54 | XRAY Report ---
EXAM: CHEST RADIOGRAPHY EXAM DATE: 04/15/2017 08:15 PM. CLINICAL HISTORY: Worsening hypoxia . COMPARISON: 04/14/2017. TECHNIQUE: 1 view. FINDINGS: Lungs/Pleura: Moderate to large right pleural effusion, increased since the previous exam. There is p ulmonary venous congestion noting sightly improved left lung aeration. Mediastinum: Heart appears enlarged although is partially obscured by right pleural effusion. Other: None. IMPRESSION: Moderate to large right pleural effusion, increased since the previous exam. Slight decre ase in interstitial edema. [facility] Referring Provider Line: [phone] SITE ID: [id number]
[2017-04-15 20:58] LABS: ABG ANALYSIS TIME 2059; ABG BASE EXCESS 2.5 mmol/L (-2.0-3.0); ABG HCO3 27.1 mmol/L (22.0-26.0); ABG OXYGEN SATURATION 93 % (94-98); ABG PCO2 42 mmHg (34-45); ABG PH 7.43 (7.35-7.45); ABG PO2 65 mmHg (80-100); ABG SATURATION PULSE OXIMETRY% 93 %; ABG SITE OF DRAW LEFT RADIAL; ABG TCO2 28.3 MMOL/L (21.0-29.0); ALLEN TEST POSITIVE
[2017-04-15 20:59] LABS: ABG O2 DEVICE OXYMASK
[2017-04-15 21:33] LABS: INR 2.3 (0.8-1.2); PT - PROTHROMBIN TIME 26.4 secs (9.9-12.6)
--- NOTE | 2017-04-15 21:55 | PROVIDER PROGRESS NOTE ---
Assessment/Plan - Problem List (1) Ascites Assessment/Plan: received paracentesis yesterday (2) Pleural effusion, right Assessment/Plan: US guided pleurocentesis in am via interventional radiology (3) Anasarca Assessment/Plan: on lasix and spironolactone- increased lasix today (4) Pneumonia Assessment/Plan: on IV Zosyn, IV Flagyl, and IV Vancomycin, Duonebs and IV Solumedrol - Current Meds Current Meds: Current Medications Generic Name Dose Route Start Last Admin Trade Name Freq PRN Reason Stop Dose Admin Albuterol/Ipratropium 3 ml 04/14/17 18:13 04/15/17 10:25 Duoneb INH 3 ml Q4HR PRN Administration Wheezing Furosemide 40 mg 04/15/17 20:00 04/15/17 20:39 Lasix Inj 40 Mg Vial IVP 40 mg BIDDIURETIC ERNA Administration Piperacillin Sod/Tazobactam 100 mls @ 200 mls/hr 04/14/17 22:00 04/15/17 14: 51 Sod 3.375 gm/ Sodium Chloride IV Infused TID ERNA Infusion Metronidazole 500 mg in 100 mls @ 200 mls/hr 04/15/17 12:00 04/15/17 18:45 Flagyl 500 Mg/100 Ml IV Infused Q6HR ERNA Infusion Vancomycin/Sodium Chloride 2 gm in 500 mls @ 250 mls/hr 04/15/17 16:00 18:08 Vanco/Sod Chloride 0.9% IV Infused Q12H ERNA Infusion Methylprednisolone 40 mg 04/14/17 18:00 04/15/17 17:56 Solu-Medrol (40mg Vial) IVP 40 mg Q6HR ERNA Administration Pantoprazole Sodium 40 mg 04/15/17 07:00 04/15/17 06:41 Protonix IVP 40 mg QDAC ERNA Administration Sodium Chloride 10 ml 04/14/17 22:00 04/15/17 14:16 Normal Saline Flush 0.9% IVP 10 ml Q8HR ERNA Administration Sodium Chloride 10 ml 04/14/17 17:57 04/15/17 00:42 Normal Saline Flush 0.9% IVP 10 ml PRN PRN Administration NEEDED PER PROVIDER ORDERS Spironolactone 50 mg 04/14/17 21:00 04/15/17 20:40 Aldactone PO 50 mg BID ERNA Administration - Lab Result Lab results reviewed: Yes Fish Bone Diagrams: 04/15/17 04:38 04/15/17 04:38 - Additional Planning Condition/Complexity: Improved My Orders: My Active Orders 04/14/17 21:00 Spironolactone [Aldactone] 50 mg PO BID 04/14/17 22:00 Piperacillin/Tazobactam [Zosyn] 3.375 gm Sodium Chloride 0.9% Minibag [Normal Saline 0.9% Minibag] 100 ml IV TID 04/15/17 16:00 Vancomycin 2 gm/Ns 500 ml [Vanco/Sod Chloride 0.9%] 2 gm in 500 ml IV Q12H 04/16/17 05:00 MAGNESIUM [CHEM] DAILYLAB PHOSPHORUS [CHEM] DAILYLAB 04/17/17 05:00 MAGNESIUM [CHEM] DAILYLAB PHOSPHORUS [CHEM] DAILYLAB 04/17/17 15:30 VANCOMYCIN TROUGH [CHEM] Timed Time Spent: 15-30 minutes Subjective - Subjective Patient Reports: Feeling Better, Shortness of Breath (The patient's SOB is secondary to a right pleural effusion.) Objective Vital Signs: Vital Signs - 24 hr 04/14/17 04/14/17 04/15/17 22:00 23:00 00:00 Temperature 36.9 C Heart Rate Heart Rate [ 102 H 101 H 102 H Monitoring electrodes] Respiratory 26 H 27 H 23 Rate Blood Pressure 144/91 H 137/82 H 138/76 H [Right Brachial artery] O2 Saturation 94 95 94 04/15/17 04/15/17 04/15/17 01:00 02:00 02:15 Temperature Heart Rate 100 Heart Rate [ 107 H 102 H Monitoring electrodes] Respiratory 26 H 22 22 Rate Blood Pressure 147/87 H 126/75 [Right Brachial artery] O2 Saturation 94 95 04/15/17 04/15/17 04/15/17 03:00 04:00 05:00 Temperature 37.1 C Heart Rate Heart Rate [ 105 H 106 H 104 H Monitoring electrodes] Respiratory 25 H 24 18 Rate Blood Pressure 130/81 H 131/81 H 146/79 H [Right Brachial artery] O2 Saturation 92 92 93 04/15/17 04/15/17 04/15/17 06:00 06:59 09:00 Temperature Heart Rate Heart Rate [ 101 H 102 H 98 Monitoring electrodes] Respiratory 23 24 23 Rate Blood Pressure 152/78 H 152/78 H 130/77 [Right Brachial artery] O2 Saturation 91 L 93 89 L 04/15/17 04/15/17 04/15/17 10:00 10:25 12:00 Temperature 36.7 C Heart Rate 100 Heart Rate [ 98 103 H Monitoring electrodes] Respiratory 26 H 20 30 H Rate Blood Pressure 148/77 H 110/72 [Right Brachial artery] O2 Saturation 91 L 91 L 04/15/17 04/15/17 04/15/17 13:00 14:00 15:00 Temperature Heart Rate Heart Rate [ 105 H 106 H 101 H Monitoring electrodes] Respiratory 24 26 H 24 Rate Blood Pressure 142/80 H 149/90 H 149/97 H [Right Brachial artery] O2 Saturation 91 L 10 L 92 04/15/17 04/15/17 04/15/17 16:02 18:00 19:00 Temperature Heart Rate Heart Rate [ 97 93 100 Monitoring electrodes] Respiratory 30 H 26 H 22 Rate Blood Pressure 140/88 H 152/87 H 138/84 H [Right Brachial artery] O2 Saturation 92 94 91 L 04/15/17 04/15/17 20:00 21:00 Temperature 36.5 C Heart Rate Heart Rate [ 98 93 Monitoring electrodes] Respiratory 25 H 24 Rate Blood Pressure 145/95 H 141/90 H [Right Brachial artery] O2 Saturation 92 93 Oxygen O2 Source Oxymask I&O (Last 24 Hrs): Intake and Output Totals x24h 04/13/17 04/14/17 04/15/17 23:59 23:59 23:59 Intake Total 700 2630 Output Total 660 1175 Balance 40 1455 General: Alert, Oriented x3, Cooperative, Mild distress HEENT: Atraumatic, PERRLA, EOMI Neck: Supple Neuro: Alert, CN 2-12 Grossly Intact, Oriented Times 3 Cardiovascular: Regular rate, Normal S1, Normal S2 Respiratory: Chest non-tender, No respiratory distress, Wheezes, Other ( Decreased inspiratory effort) Abdomen: Normal bowel sounds, Soft, No tenderness Extremities: Other (+2 edema) - Results Results: Laboratory Results WBC 8.4 x10^3/uL (4.8-10.8) 04/15/17 04:38 RBC 3.26 10^6/uL (4.70-6.10) L 04/15/17 04:38 Hgb 12.2 g/dL (14.0-18.0) L 04/15/17 04:38 Hct 34.5 % (42.0-52.0) L 04/15/17 04:38 MCV 106.0 fL (80.0-94.0) H 04/15/17 04:38 MCH 37.5 pg (27.0-31.0) H 04/15/17 04:38 MCHC 35.4 g/dL (32.0-36.0) 04/15/17 04:38 RDW 14.0 % (12.0-15.0) 04/15/17 04:38 Plt Count 178 10^3/uL (130-450) 04/15/17 04:38 MPV 8.1 fL (7.4-11.4) 04/15/17 04:38 Neut # 7.5 10^3/uL (1.5-6.6) H 04/15/17 04:38 Lymph # 0.8 10^3/uL (1.5-3.5) L 04/15/17 04:38 [place] # 0.2 10^3/uL (0.0-1.0) 04/15/17 04:38 Eos # 0.0 10^3/uL (0.0-0.7) 04/15/17 04:38 Baso # 0.0 10^3/uL (0.0-0.1) 04/15/17 04:38 Absolute Nucleated RBC 0.01 x10^3/uL 04/15/17 04:38 Band Neuts % (Manual) 2 % (0-10) 04/14/17 14:10 Nucleated RBC % 0.2 /100WBC 04/15/17 04:38 Neutrophils # (Manual) 6.8 10^3/uL (1.5-6.6) H 04/14/17 14:10 Lymphocytes # (Manual) 2.1 10^3/uL (1.5-3.5) 04/14/17 14:10 Monocytes # (Manual) 1.9 10^3/uL (0.0-1.0) H 04/14/17 14:10 Eosinophils # (Manual) 0.2 10^3/uL (0-0.7) 04/14/17 14:10 Basophils # (Manual) 0.1 10^3/uL (0-0.1) 04/14/17 14:10 Platelet Estimate NORMAL (130-450,000) (NORMAL) 04/15/17 04:38 RBC Morph Micro Appear 2+ TARGET CELLS (NORMAL) 1+ REID JOLLY BODY (NORMAL ) 1+ MACROCYTOSIS (NORMAL) 04/14/17 14:10 RBC Morph Micro Appear 2+ TARGET CELLS (NORMAL) 1+ REID JOLLY BODY (NORMAL ) 1+ MACROCYTOSIS (NORMAL) 04/14/17 14:10 RBC Morph Micro Appear 2+ TARGET CELLS (NORMAL) 1+ REID JOLLY BODY (NORMAL ) 1+ MACROCYTOSIS (NORMAL) 04/14/17 14:10 PT 26.4 secs (9.9-12.6) H 04/15/17 21:20 INR 2.3 (0.8-1.2) H 04/15/17 21:20 APTT 42.7 secs (24.9-33.3) H 04/14/17 14:10 Bld Gas Analysis Time 205804/15/17 20:40 Sample Site LEFT RADIAL 04/15/17 20:40 ABG pH 7.43 (7.35-7.45) 04/15/17 20:40 ABG pCO2 42 mmHg (34-45) 04/15/17 20:40 ABG pO2 65 mmHg (80-100) L 04/15/17 20:40 ABG HCO3 27.1 mmol/L (22.0-26.0) H 04/15/17 20:40 ABG Total CO2 28.3 MMOL/L (21.0-29.0) 04/15/17 20:40 ABG O2 Saturation 93 % (94-98) L 04/15/17 20:40 ABG Oximetry Spot Check 93 % 04/15/17 20:40 ABG Base Excess 2.5 mmol/L (-2.0-3.0) 04/15/17 20:40 Larry Test POSITIVE 04/15/17 20:40 O2 Delivery Device OXYMASK 04/15/17 20:40 O2 Liters/Min 14.00 LPM 04/15/17 20:40 Sodium 131 mmol/L (135-145) L 04/15/17 04:38 Potassium 3.8 mmol/L (3.5-5.0) 04/15/17 04:38 Chloride 100 mmol/L (101-111) L 04/15/17 04:38 Carbon Dioxide 23 mmol/L (21-32) 04/15/17 04:38 Anion Gap 8.0 (6-13) 04/15/17 04:38 BUN 12 mg/dL (6-20) 04/15/17 04:38 Creatinine 0.7 mg/dL (0.6-1.2) 04/15/17 04:38 Estimated GFR (MDRD) 129 (>89) 04/15/17 04:38 Glucose 130 mg/dL (70-100) H 04/15/17 04:38 Calcium 8.1 mg/dL (8.5-10.3) L 04/15/17 04:38 Phosphorus 5.1 mg/dL (2.5-4.6) H 04/15/17 04:38 Magnesium 1.8 mg/dL (1.7-2.8) 04/15/17 04:38 Total Bilirubin 5.1 mg/dL (0.2-1.0) H 04/15/17 04:38 AST 70 IU/L (10-42) H 04/15/17 04:38 ALT 33 IU/L (10-60) 04/15/17 04:38 Alkaline Phosphatase 136 IU/L (42-121) H 04/15/17 04:38 Ammonia 23.6 umol/L (7-35) 04/14/17 16:13 B-Natriuretic Peptide 105 pg/mL (5-100) H 04/14/17 14:10 Total Protein 8.8 g/dL (6.7-8.2) H 04/15/17 04:38 Albumin 2.0 g/dL (3.2-5.5) L 04/15/17 04:38 Globulin 6.8 g/dL (2.1-4.2) H 04/15/17 04:38 Albumin/Globulin Ratio 0.3 (1.0-2.2) L 04/15/17 04:38 Lipase 53 U/L (22-51) H 04/14/17 14:10 Fluid Source PERITONIAL 04/14/17 17:18 Fluid Color YELLOW 04/14/17 17:18 Fluid Clarity HAZY 04/14/17 17:18 Fluid WBC 184 /mm^3 04/14/17 17:18 Fluid RBC 3664 /mm^3 04/14/17 17:18 Fluid Neutrophils % 8 % 04/14/17 17:18 Fluid Lymphocytes % 24 04/14/17 17:18 Fluid Monocytes % 17 % 04/14/17 17:18 Fluid Macrophages % 42 % 04/14/17 17:18 Fld Mesothelial Cell % 9 % 04/14/17 17:18 Ethyl Alcohol < 5.0 mg/dL 04/14/17 16:13 - Procedures Procedures: Procedures OTHER & OPEN REPAIR UMBILICAL HERNIA W GRAFT OR PROSTHESIS (06/11/14) OTHER OPEN INCISIONAL HERNIA REPAIR WITH GRAFT OR PROSTHESIS (06/11/14)
[2017-04-15] MEDS: oxyCODONE 5 MG TABLET PO PRN (23:47)
[2017-04-16] MEDS: methylPREDNISolone SUCCINATE 40 MG/ML VIAL IVP SCH ×4 (00:30→17:30)
[2017-04-16] MEDS: metroNIDAZOLE 500 MG/100 ML 500 MG/100 ML BAG IV SCH ×2 (00:30→07:45)
[2017-04-16] MEDS: VANCOMYCIN 2 GM/NS 500 ML 2 GM/500 ML BAG IV SCH ×2 (03:46→15:47)
[2017-04-16] MEDS ORDERED: FUROSEMIDE 40 MG/4 ML VIAL IVP STA (03:53)
[2017-04-16] MEDS: IPRATROPIUM/ALBUTEROL 3 ML NEB INH PRN ×2 (04:00→07:10)
[2017-04-16] MEDS: SODIUM CHLORIDE FLUSH 0.9% 10 ML SYRINGE IVP PRN (06:28)
[2017-04-16] MEDS: SODIUM CHLORIDE FLUSH 0.9% 10 ML SYRINGE IVP SCH ×2 (06:28→14:07)
[2017-04-16] MEDS: FUROSEMIDE 40 MG/4 ML VIAL IVP SCH ×2 (06:28→14:07)
[2017-04-16] MEDS: PANTOPRAZOLE 40 MG VIAL IVP SCH (06:52)
[2017-04-16 07:01] LABS: BASOPHILS % (AUTO) 0.2 %; HCT - HEMATOCRIT 33.2 % (42.0-52.0); HGB - HEMOGLOBIN 11.5 g/dL (14.0-18.0); LYMPHOCYTES # (AUTO) 0.9 10^3/uL (1.5-3.5); MEAN CORPUSCULAR HGB CONC 34.6 g/dL (32.0-36.0); MEAN CORPUSCULAR VOLUME 106.9 fL (80.0-94.0); MEAN PLATELET VOLUME 8.1 fL (7.4-11.4); MONOCYTES # (AUTO) 1.3 10^3/uL (0.0-1.0); NEUTROPHILS # (AUTO) 16.4 10^3/uL (1.5-6.6); NEUTROPHILS % (AUTO) 87.8 %; RED CELL DISTRIBUTION WIDTH 14.3 % (12.0-15.0); UNCORRECTED WHITE BLOOD COUNT 18.6 x10^3/uL; WHITE BLOOD COUNT 18.6 x10^3/uL (4.8-10.8)
[2017-04-16 07:05] LABS: INR 1.9 (0.8-1.2); PT - PROTHROMBIN TIME 21.9 secs (9.9-12.6)
[2017-04-16 07:15] LABS: ALBUMIN/GLOBULIN RATIO 0.3 (1.0-2.2); BILIRUBIN,TOTAL 3.4 mg/dL (0.2-1.0); CALCIUM 8.3 mg/dL (8.5-10.3); CREATININE 0.8 mg/dL (0.6-1.2); MAGNESIUM 1.7 mg/dL (1.7-2.8); PHOSPHORUS 4.5 mg/dL (2.5-4.6); POTASSIUM 3.9 mmol/L (3.5-5.0)
[2017-04-16] MEDS: oxyCODONE 5 MG TABLET PO PRN ×2 (07:58→17:30)
[2017-04-16] MEDS: SPIRONOLACTONE 25 MG TABLET PO SCH (10:34)
--- NOTE | 2017-04-16 10:36 | PROVIDER PROGRESS NOTE ---
Assessment/Plan - Problem List (1) Ascites Assessment/Plan: received paracentesis 2 days ago. Waiting on cultures and lab results. (2) Pleural effusion, right Assessment/Plan: US guided thorocentesis today (8 am) completed by interventional radiology. Thorocentesis labs have been ordered. Chest x-ray S/P procedure has been ordered. The patient is breathing easier and feeling better. (3) Anasarca Assessment/Plan: improved on lasix and spironolactone (4) Pneumonia Assessment/Plan: on IV Imipenem and IV Vancomycin, Duonebs and IV Solumedrol. (5) Cirrhosis Qualifiers: Hepatic cirrhosis type: alcoholic cirrhosis Ascites presence: with ascites Qualified Code(s): K70.31 - Alcoholic cirrhosis of liver with ascites - Current Meds Current Meds: Current Medications Generic Name Dose Route Start Last Admin Trade Name Freq PRN Reason Stop Dose Admin Albuterol/Ipratropium 3 ml 04/14/17 18:13 04/16/17 07:10 Duoneb INH 3 ml Q4HR PRN Administration Wheezing Furosemide 40 mg 04/15/17 20:00 04/16/17 06:28 Lasix Inj 40 Mg Vial IVP 40 mg BIDDIURETIC ERNA Administration Metronidazole 500 mg in 100 mls @ 200 mls/hr 04/15/17 12:00 04/16/17 08:34 Flagyl 500 Mg/100 Ml IV Infused Q6HR ERNA Infusion Vancomycin/Sodium Chloride 2 gm in 500 mls @ 250 mls/hr 04/15/17 16:00 06:59 Vanco/Sod Chloride 0.9% IV Infused Q12H ERNA Infusion Methylprednisolone 40 mg 04/14/17 18:00 04/16/17 06:28 Solu-Medrol (40mg Vial) IVP 40 mg Q6HR ERNA Administration Oxycodone HCl 5 mg 04/15/17 22:41 04/16/17 07:58 Roxicodone PO 5 mg Q4HR PRN Administration PAIN Pantoprazole Sodium 40 mg 04/15/17 07:00 04/16/17 06:52 Protonix IVP 40 mg QDAC ERNA Administration Sodium Chloride 10 ml 04/14/17 22:00 04/16/17 06:28 Normal Saline Flush 0.9% IVP 10 ml Q8HR ERNA Administration Sodium Chloride 10 ml 04/14/17 17:57 04/16/17 06:28 Normal Saline Flush 0.9% IVP 10 ml PRN PRN Administration NEEDED PER PROVIDER ORDERS Spironolactone 50 mg 04/14/17 21:00 04/15/17 20:40 Aldactone PO 50 mg BID ERNA Administration - Lab Result Lab results reviewed: Yes Fish Bone Diagrams: 04/16/17 06:51 04/16/17 06:51 - Additional Planning Condition/Complexity: Improved (The patient is breathing easier S/P paracentesis and thorocentesis. He is beginning to feel better.) My Orders: My Active Orders 04/15/17 16:00 Vancomycin 2 gm/Ns 500 ml [Vanco/Sod Chloride 0.9%] 2 gm in 500 ml IV Q12H 04/16/17 09:02 Thoracentesis Puncture [US] Stat 04/16/17 09:35 CELL COUNT, BF [BF] Stat CUL, AFB MYCOBACTERIA (QUEST) [REFLAB] Stat CUL,BODY FLUID(AEROBIC) [RM] Stat 04/16/17 09:46 Miscellaneous Laboratory Order [LAB] Urgent 04/16/17 10:20 Chest 2 View PA/LAT [XR] Stat 04/16/17 12:00 Imipenem/Cilastatin [Primaxin] 500 mg Sodium Chloride 0.9% Minibag [Normal Saline 0.9% Minibag] 100 ml IV Q6HR 04/17/17 05:00 CBC - COMP BLD CT W/AUTO DIFF [HEME] Routine CMP [COMPREHENSIVE METABOLIC PANEL] [CHEM] Routine MAGNESIUM [CHEM] DAILYLAB PHOSPHORUS [CHEM] DAILYLAB 04/17/17 15:30 VANCOMYCIN TROUGH [CHEM] Timed Time Spent: 15-30 minutes Subjective - Subjective Patient Reports: Feeling Better, Shortness of Breath (The patient is breathing easier S/P paracentesis and thorocentesis. He will begin PT today.) Objective Vital Signs: Vital Signs - 24 hr 04/15/17 04/15/17 04/15/17 12:00 13:00 14:00 Temperature 36.7 C Heart Rate Heart Rate [ 103 H 105 H 106 H Monitoring electrodes] Respiratory 30 H 24 26 H Rate Blood Pressure 110/72 142/80 H 149/90 H [Right Brachial artery] O2 Saturation 91 L 91 L 10 L 04/15/17 04/15/1704/15/17 15:00 16:02 18:00 Temperature Heart Rate Heart Rate [ 101 H 97 93 Monitoring electrodes] Respiratory 24 30 H 26 H Rate Blood Pressure 149/97 H 140/88 H 152/87 H [Right Brachial artery] O2 Saturation 92 92 94 04/15/17 04/15/17 04/15/17 18:55 19:00 20:00 Temperature 36.5 C Heart Rate 100 Heart Rate [ 100 98 Monitoring electrodes] Respiratory 24 22 25 H Rate Blood Pressure 138/84 H 145/95 H [Right Brachial artery] O2 Saturation 91 L 92 04/15/17 04/15/17 04/15/17 21:00 22:00 23:00 Temperature Heart Rate Heart Rate [ 93 94 94 Monitoring electrodes] Respiratory 24 24 25 H Rate Blood Pressure 141/90 H 145/90 H 141/86 H [Right Brachial artery] O2 Saturation 93 92 92 04/15/17 04/16/17 04/16/17 23:55 00:00 01:00 Temperature 36.7 C Heart Rate 97 Heart Rate [ 105 H 105 H Monitoring electrodes] Respiratory 20 17 23 Rate Blood Pressure 141/81 H 137/80 H [Right Brachial artery] O2 Saturation 94 93 04/16/17 04/16/17 04/16/17 02:00 03:00 04:00 Temperature 36.7 C Heart Rate 100 Heart Rate [ 105 H 103 H 101 H Monitoring electrodes] Respiratory 22 24 18 Rate Blood Pressure 147/73 H 148/77 H 134/80 H [Right Brachial artery] O2 Saturation 92 91 L 91 L 04/16/17 04/16/17 04/16/17 05:00 06:00 07:00 Temperature 36.8 C Heart Rate Heart Rate [ 100 101 H 99 Monitoring electrodes] Respiratory 22 22 27 H Rate Blood Pressure 143/78 H 130/80 137/81 H [Right Brachial artery] O2 Saturation 93 93 92 04/16/17 04/16/17 04/16/17 07:10 07:40 08:00 Temperature 37.1 C Heart Rate 96 Heart Rate [ 96 95 Monitoring electrodes] Respiratory 23 22 25 H Rate Blood Pressure 136/92 H [Right Brachial artery] O2 Saturation 93 91 L 04/16/17 04/16/17 04/16/17 09:00 09:28 09:31 Temperature Heart Rate Heart Rate [ 100 101 H 102 H Monitoring electrodes] Respiratory 26 H 22 26 H Rate Blood Pressure 121/64 115/70 120/68 [Right Brachial artery] O2 Saturation 92 92 90 L 04/16/17 04/16/17 04/16/17 09:33 09:40 09:42 Temperature Heart Rate Heart Rate [ 100 108 H 103 H Monitoring electrodes] Respiratory 29 H 24 20 Rate Blood Pressure 114/70 126/111 H [Right Brachial artery] O2 Saturation 91 L 94 92 04/16/17 04/16/17 09:45 10:00 Temperature Heart Rate Heart Rate [ 104 H 108 H Monitoring electrodes] Respiratory 21 24 Rate Blood Pressure 125/67 133/65 H [Right Brachial artery] O2 Saturation 94 93 Oxygen O2 Source oxymask & 6L nasal I&O (Last 24 Hrs): Intake and Output Totals x24h 04/14/17 04/15/17 04/16/17 23:59 23:59 23:59 Intake Total 700 3230 1520 Output Total 660 2075 3725 Balance 40 1155 -2205 General: Alert, Oriented x3, Cooperative, Mild distress HEENT: Atraumatic, PERRLA, EOMI Neck: Supple, No JVD Neuro: Alert, CN 2-12 Grossly Intact, Oriented Times 3 Cardiovascular: Regular rate, Normal S1, Normal S2 Respiratory: Wheezes, Other (Decreased breath sounds earlier today prior to thorocentesis. After the thorocentesis the patient is breathing easier.) Abdomen: Normal bowel sounds, Other (slightly diffusely tender and distended) Extremities: Other (edema has improved S/P IV albumin) - Results Results: Laboratory Results WBC 18.6 x10^3/uL (4.8-10.8) H 04/16/17 06:51 RBC 3.10 10^6/uL (4.70-6.10) L 04/16/17 06:51 Hgb 11.5 g/dL (14.0-18.0) L 04/16/17 06:51 Hct 33.2 % (42.0-52.0) L 04/16/17 06:51 MCV 106.9 fL (80.0-94.0) H 04/16/17 06:51 MCH 37.0 pg (27.0-31.0) H 04/16/17 06:51 MCHC 34.6 g/dL (32.0-36.0) 04/16/17 06:51 RDW 14.3 % (12.0-15.0) 04/16/17 06:51 Plt Count 171 10^3/uL (130-450) 04/16/17 06:51 MPV 8.1 fL (7.4-11.4) 04/16/17 06:51 Neut # 16.4 10^3/uL (1.5-6.6) H 04/16/17 06:51 Lymph # 0.9 10^3/uL (1.5-3.5) L 04/16/17 06:51 [place] # 1.3 10^3/uL (0.0-1.0) H 04/16/17 06:51 Eos # 0.0 10^3/uL (0.0-0.7) 04/16/17 06:51 Baso # 0.0 10^3/uL (0.0-0.1) 04/16/17 06:51 Absolute Nucleated RBC 0.00 x10^3/uL 04/16/17 06:51 Band Neuts % (Manual) 2 % (0-10) 04/14/17 14:10 Nucleated RBC % 0.0 /100WBC 04/16/17 06:51 Neutrophils # (Manual) 6.8 10^3/uL (1.5-6.6) H 04/14/17 14:10 Lymphocytes # (Manual) 2.1 10^3/uL (1.5-3.5) 04/14/17 14:10 Monocytes # (Manual) 1.9 10^3/uL (0.0-1.0) H 04/14/17 14:10 Eosinophils # (Manual) 0.2 10^3/uL (0-0.7) 04/14/17 14:10 Basophils # (Manual) 0.1 10^3/uL (0-0.1) 04/14/17 14:10 Platelet Estimate NORMAL (130-450,000) (NORMAL) 04/15/17 04:38 RBC Morph Micro Appear 2+ TARGET CELLS (NORMAL) 1+ REID JOLLY BODY (NORMAL ) 1+ MACROCYTOSIS (NORMAL) 04/14/17 14:10 RBC Morph Micro Appear 2+ TARGET CELLS (NORMAL) 1+ REID JOLLY BODY (NORMAL ) 1+ MACROCYTOSIS (NORMAL) 04/14/17 14:10 RBC Morph Micro Appear 2+ TARGET CELLS (NORMAL) 1+ REID JOLLY BODY (NORMAL ) 1+ MACROCYTOSIS (NORMAL) 04/14/17 14:10 PT 21.9 secs (9.9-12.6) H 04/16/17 06:51 INR 1.9 (0.8-1.2) H 04/16/17 06:51 APTT 42.7 secs (24.9-33.3) H 04/14/17 14:10 Bld Gas Analysis Time 205804/15/17 20:40 Sample Site LEFT RADIAL 04/15/17 20:40 ABG pH 7.43 (7.35-7.45) 04/15/17 20:40 ABG pCO2 42 mmHg (34-45) 04/15/17 20:40 ABG pO2 65 mmHg (80-100) L 04/15/17 20:40 ABG HCO3 27.1 mmol/L (22.0-26.0) H 04/15/17 20:40 ABG Total CO2 28.3 MMOL/L (21.0-29.0) 04/15/17 20:40 ABG O2 Saturation 93 % (94-98) L 04/15/17 20:40 ABG Oximetry Spot Check 93 % 04/15/17 20:40 ABG Base Excess 2.5 mmol/L (-2.0-3.0) 04/15/17 20:40 Larry Test POSITIVE 04/15/17 20:40 O2 Delivery Device OXYMASK 04/15/17 20:40 O2 Liters/Min 14.00 LPM 04/15/17 20:40 Sodium 135 mmol/L (135-145) 04/16/17 06:51 Potassium 3.9 mmol/L (3.5-5.0) 04/16/17 06:51 Chloride 99 mmol/L (101-111) L 04/16/17 06:51 Carbon Dioxide 25 mmol/L (21-32) 04/16/17 06:51 Anion Gap 11.0 (6-13) 04/16/17 06:51 BUN 16 mg/dL (6-20) 04/16/17 06:51 Creatinine 0.8 mg/dL (0.6-1.2) 04/16/17 06:51 Estimated GFR (MDRD) 111 (>89) 04/16/17 06:51 Glucose 139 mg/dL (70-100) H 04/16/17 06:51 Calcium 8.3 mg/dL (8.5-10.3) L 04/16/17 06:51 Phosphorus 4.5 mg/dL (2.5-4.6) 04/16/17 06:51 Magnesium 1.7 mg/dL (1.7-2.8) 04/16/17 06:51 Total Bilirubin 3.4 mg/dL (0.2-1.0) H 04/16/17 06:51 AST 59 IU/L (10-42) H 04/16/17 06:51 ALT 31 IU/L (10-60) 04/16/17 06:51 Alkaline Phosphatase 130 IU/L (42-121) H 04/16/17 06:51 Ammonia 23.6 umol/L (7-35) 04/14/17 16:13 B-Natriuretic Peptide 105 pg/mL (5-100) H 04/14/17 14:10 Total Protein 9.0 g/dL (6.7-8.2) H 04/16/17 06:51 Albumin 2.2 g/dL (3.2-5.5) L 04/16/17 06:51 Globulin 6.8 g/dL (2.1-4.2) H 04/16/17 06:51 Albumin/Globulin Ratio 0.3 (1.0-2.2) L 04/16/17 06:51 Lipase 53 U/L (22-51) H 04/14/17 14:10 Fluid Source PERITONIAL 04/14/17 17:18 Fluid Color YELLOW 04/14/17 17:18 Fluid Clarity HAZY 04/14/17 17:18 Fluid WBC 184 /mm^3 04/14/17 17:18 Fluid RBC 3664 /mm^3 04/14/17 17:18 Fluid Neutrophils % 8 % 04/14/17 17:18 Fluid Lymphocytes % 24 04/14/17 17:18 Fluid Monocytes % 17 % 04/14/17 17:18 Fluid Macrophages % 42 % 04/14/17 17:18 Fld Mesothelial Cell % 9 % 04/14/17 17:18 Ethyl Alcohol < 5.0 mg/dL 04/14/17 16:13 Blood Type A POSITIVE 04/15/17 22:53 Antibody Screen NEGATIVE 04/15/17 22:53 - Procedures Procedures: Procedures OTHER & OPEN REPAIR UMBILICAL HERNIA W GRAFT OR PROSTHESIS (06/11/14) OTHER OPEN INCISIONAL HERNIA REPAIR WITH GRAFT OR PROSTHESIS (06/11/14) The patient received a paracentesis and thorocentesis during this hospital stay.
[2017-04-16 11:06] LABS: BF CLARITY CLOUDY; BF COLOR RED; CC,BF RBC 49463 /mm^3
--- NOTE | 2017-04-16 11:09 | Ultrasound Report ---
ULTRASOUND-GUIDED THORACENTESIS: 04/16/2017 CLINICAL INDICATION: Respiratory distress. FINDINGS: Following obtaining informed consent, a suitable site on the patient's right chest was jesus ected with ultrasound. The skin was prepped and draped in the usual sterile fashion. The skin and s oft tissues were anesthetized with buffered lidocaine. A Nyxj-C-Psfiauyt catheter was inserted into the right pleural space, and approximately 1150 mL of pleural fluid was removed. Fluid was submitted to the lab for further evaluation as directed by the clinical service. The patient tolerated the pr ocedure well. No immediate complications. IMPRESSION: SUCCESSFUL RIGHT ULTRASOUND-GUIDED THORACENTESIS, YIELDING APPROXIMATELY 1150 ML OF FLUI D. FLUID SUBMITTED TO THE LAB. JOB #: [id number] EXT JOB #:[id number]
--- NOTE | 2017-04-16 11:31 | XRAY Report ---
TWO-VIEW CHEST: 04/16/2017 CLINICAL INDICATION: Followup right thoracentesis. COMPARISON: 04/15/2017 FINDINGS: Frontal and lateral views of the chest demonstrate a normal cardiac silhouette. Right ple ural effusion has decreased slightly following right ultrasound-guided thoracentesis. Small left eff usion is present. No pneumothorax. IMPRESSION: SLIGHT DECREASE IN RIGHT EFFUSION FOLLOWING RIGHT ULTRASOUND-GUIDED THORACENTESIS. SMAL L LEFT EFFUSION. JOB #: [id number] EXT JOB #:[id number]
[2017-04-16] MEDS: IMIPENEM/CILASTATIN 500 MG in SODIUM CHLORIDE 0.9% MINIBAG 100 ML IV SCH ×2 (11:53→17:28)
[2017-04-16] MEDS ORDERED: BUFFERED LIDOCAINE 10 ML SYRINGE IU ONE (13:08)
--- NOTE | 2017-04-16 16:40 | Discharge Plan ---
Discharge Plan Disposition: 02 Transfer Acute Care Hosp Condition: Serious Additional Instructions or Follow Up instructions: The patient will be transferred to [facility]. The accepting doctor is Dr. Mcnally. No Smoking: If you smoke, Please STOP! Call for help. Follow-up with: Otto Hines MD [Primary Care Provider] -
[2017-04-16] MEDS ORDERED: FOLIC ACID 1 MG TABLET PO SCH (17:00)
--- NOTE | 2017-04-16 17:53 | DISCHARGE SUMMARY ---
DATE OF ADMISSION: 04/14/2017 DATE OF DISCHARGE: 04/16/2017 Today's date is 04/16/2017 and the time is 5:18 p.m. DISCHARGE DIAGNOSES 1. Right-sided pneumonia. 2. Cirrhosis with ascites secondary to alcohol abuse. 3. Asthma. 4. Pernicious anemia. The patient will be discharged to [facility]. The accepting physician is Dr. Mcnally. HOSPITAL COURSE: The patient, a 36-year-old white male, presented to the ER with cirrhosis and ascites resulting from a history of alcohol abuse. He received a paracentesis in the ER and 2-1/2 liters of ascitic fluid were collected. The peritoneal fluid was yellow, hazy, white blood cells of 184, neutrophils of 8, lymphocytes of 24. It was cultured, but the cultures have not grown any organisms back yet. He received a thoracentesis today. The pleural fluid was red, cloudy. White blood cells were 585, red blood cells were 49,463, neutrophils were 33. The patient received a chest x-ray after the right thoracentesis was completed. The right lung effusion only showed a slight decrease after a liter of pleural fluid had been tapped off the patient. He is currently on an OxyMask at 13 to 16 liters. He is using his abdominal muscles to breathe. His right-sided pneumonia is being treated with IV imipenem and IV vancomycin. He last used alcohol 9 weeks ago. He never wants to return to drinking. He is receiving folic acid for his pernicious anemia. He also did have thiamine ordered. He has received fresh frozen plasma, IV Lasix, spironolactone and IV albumin. He is currently in our ICU. He is being discharged to [facility] in serious condition. He is also receiving IV Solu-Medrol and DuoNebs for his shortness of breath. PHYSICAL EXAMINATION VITAL SIGNS: Temperature of 36.6, pulse of 92, a blood pressure of 138/73, a respiratory rate of 22, and O2 saturation of 92% on 13 liters OxyMask. HEAD, EYES, EARS, NOSE AND THROAT: His head is atraumatic, normocephalic. His eyes are PERRLA, EOMI. NECK: Supple. No JVD, no bruits, no thyroid enlargement. HEART: RRR. LUNGS: Have decreased breath sounds in the right lung, and at the base of the left lung and slight wheezing. ABDOMEN: Positive for bowel sounds, soft, nontender, distended. No rebound, no guarding. EXTREMITIES: Warm. He has +2 pitting edema, 5/5 muscle strength in upper extremities. NEUROLOGICAL: He is oriented x3, follows commands, moves all 4 extremities. LABORATORY DATA: Sodium is 135. His potassium is 3.9, his chloride is 99. His bicarbonate is 25, his BUN is 16, his creatinine is 0.8. His glucose is 139, calcium is 8.3, total bilirubin is 3.4, AST is 59, ALT is 31, alkaline phosphatase is 130, total protein is 9, albumin is 2.2, globulin is 6.8, lipase is 53. White blood cells is 18.6, hemoglobin is 11.5, hematocrit is 33.2, platelets are 171,000. PT is 21.9, INR is 1.9, PTT is 42.7. The patient was transferred to [facility] to have a higher level of care that we could not provide. He needs a GI doctor and a Pulmonary doctor. Thank you for accepting the patient. JOB #: [id number] EXT JOB #:[id number] YAYA
[2017-04-16] MEDS ORDERED: CYANOCOBALAMIN 500 MCG TABLET PO SCH (18:00)
[2017-04-16] MEDS ORDERED: THIAMINE 100 MG TABLET PO SCH (18:00)
[2017-04-16] MEDS ORDERED: SACCHAROMYCES BOULARDII 250 MG CAPSULE PO SCH (18:00)
[2017-04-16 18:46] VITALS: BP 132/76
[2017-04-18 15:12] LABS: TEST RESULT REPORT
[2017-04-18 18:51] LABS: TEST RESULT REPORT
[2017-04-19 02:35] LABS: TEST RESULT REPORT
[2017-04-19 19:36] LABS: TEST RESULT REPORT
[2017-04-19 19:47] LABS: TEST RESULT REPORT
== END 2017-04-16 20:35 | disposition short-term general hospital (02) | DRG 186 ==
LOC: ED 13:37 → ICU 17:57
PROC: 0W993ZX Drainage of Right Pleural Cavity, Percutaneous Approach, Diagnostic (ICD-10-PCS; principal; 2017-04-16)
DX: J90 Pleural effusion, not elsewhere classified (principal); J18.9 Pneumonia, unspecified organism; K70.31 Alcoholic cirrhosis of liver with ascites; F10.11 Alcohol abuse, in remission; F17.210 Nicotine dependence, cigarettes, uncomplicated; Z90.81 Acquired absence of spleen; J45.909 Unspecified asthma, uncomplicated; D51.0 Vitamin B12 deficiency anemia due to intrinsic factor deficiency; R60.1 Generalized edema
CPT/HCPCS: 32555; 36415; 36600; 49082; 71010; 71020; 80053; 80074; 80320; 81599; 82140; 82803; 83690; 83735; 83880; 84100; 85025; 85610; 85730; 86850; 86900; 86901; 87070; 87150; 87205; 88108; 88305; 89051; 93005; 93306; 94640; 96365; 96375; 96376; 99284; 99285; 99406

== ENCOUNTER 2017-05-11 16:22 | Outpatient (CLI) | payer MEDICAID ==
[2017-05-11 17:12] LABS: CALCIUM 10.3 mg/dL (8.5-10.3); CREATININE 1.4 mg/dL (0.6-1.2)
[2017-05-11 17:13] LABS: POTASSIUM 6.2 mmol/L (3.5-5.0)
== END 2017-05-11 16:23 | disposition home or self-care (01) ==
LOC: LAB 16:22
PROVIDERS: ATTEND Internal Medicine
DX: K70.31 Alcoholic cirrhosis of liver with ascites (principal)
CPT/HCPCS: 36415; 80048

== ENCOUNTER 2017-05-11 19:57 | Observation (INO) | payer MEDICAID ==
[2017-05-11 20:37] LABS: EOSINOPHILS % (AUTO) 3.6 %; HCT - HEMATOCRIT 37.5 % (42.0-52.0); HGB - HEMOGLOBIN 12.9 g/dL (14.0-18.0); MEAN CORPUSCULAR HEMOGLOBIN 36.8 pg (27.0-31.0); MEAN CORPUSCULAR HGB CONC 34.5 g/dL (32.0-36.0); MEAN CORPUSCULAR VOLUME 106.5 fL (80.0-94.0); MEAN PLATELET VOLUME 8.5 fL (7.4-11.4); MONOCYTES % (AUTO) 17.5 %; NEUTROPHILS % (AUTO) 57.9 %; RED BLOOD COUNT 3.52 10^6/uL (4.70-6.10); RED CELL DISTRIBUTION WIDTH 17.1 % (12.0-15.0); WHITE BLOOD COUNT 14.7 x10^3/uL (4.8-10.8)
[2017-05-11 20:49] LABS: ALBUMIN/GLOBULIN RATIO 0.5 (1.0-2.2); BILIRUBIN,TOTAL 5.5 mg/dL (0.2-1.0); CALCIUM 10.1 mg/dL (8.5-10.3); CREATININE 1.2 mg/dL (0.6-1.2); POTASSIUM 5.8 mmol/L (3.5-5.0); TOTAL PROTEIN 9.4 g/dL (6.7-8.2)
--- NOTE | 2017-05-11 21:07 | XRAY Preliminary Report ---
Exam: XR CHEST 1 VIEW IMPRESSION: No acute disease. [facility] SITE ID: [id number]
--- NOTE | 2017-05-11 21:09 | XRAY Report ---
EXAM: CHEST RADIOGRAPHY EXAM DATE: 05/11/2017 08:49 PM. CLINICAL HISTORY: Chest pain. COMPARISON: 04/16/2017. TECHNIQUE: 1 view. FINDINGS: Lungs/Pleura: Clear. No effusion or pneumothorax. Mediastinum: Borderline cardiomegaly, decreased. Upper lobe vessels not distended. Other: None. IMPRESSION: No acute disease. [facility] Referring Provider Line: [phone] SITE ID: [id number]
[2017-05-11] MEDS ORDERED: SODIUM POLYSTYRENE SULFONATE 15 GM/60 ML BOTTLE PO STA (21:13)
[2017-05-11] MEDS ORDERED: SODIUM CHLORIDE 0.9% 1,000 ML IV ONE (21:13)
--- NOTE | 2017-05-11 21:15 | ED Physician Documentation ---
History of Present Illness - Stated complaint Stated Complaint: BLOOD CONCERNS - Chief complaint Chief Complaint: General - History obtained from History obtained from: Patient - History of Present Illness Timing: Other (36-year-old gentleman with hepatitis C and cirrhosis due to alcoholism presents because he had outpatient labs done today showing a Potassium of 6.2. He feels okay. He is not edematous, denies shortness of breath or abdominal pain. He is on Aldactone and Lasix.) Review of Systems Ten Systems: 10 systems reviewed and negative Constitutional: denies: Fever, Chills Cardiac: denies: Chest pain / pressure, Palpitations Respiratory: denies: Dyspnea, Cough GI: denies: Abdominal Pain, Nausea, Vomiting, Diarrhea PD PAST MEDICAL HISTORY - Past Medical History Cardiovascular: None Respiratory: None Neuro: None Endocrine/Autoimmune: None, Other GI: None, Cirrhosis : None HEENT: None Psych: None Musculoskeletal: None Derm: None - Past Surgical History Past Surgical History: Yes General: Appendectomy, Splenectomy, Other HEENT: Cataracts - Present Medications Home Medications: Ambulatory Orders Medication Instructions Recorded Confirmed Furosemide [Lasix] 1 tab PO DAILY 02/15/17 05/11/17 Spironolactone 25 mg PO BID 04/14/17 05/05/17 Ondansetron HCl [Zofran] 4 mg ORAL PRN PRN 05/05/17 05/05/17 HYDROmorphone [Dilaudid] 2 mg PO Q4H PRN #20 tablet 05/06/17 - Allergies Allergies/Adverse Reactions: Allergies Allergy/AdvReac Type Severity Reaction Status Date / Time No Known Drug Allergies Allergy Verified 05/11/17 20:07 - Social History Does the pt smoke?: No Smoking Status: Former smoker Does the pt drink ETOH?: No Does the pt have substance abuse?: No - Family History Family history: reports: Non contributory - Immunizations Immunizations are current?: Yes - POLST Patient has POLST: No PD ED PE NORMAL - Vitals Vital signs reviewed: Yes - General General: Alert and oriented X 3, Other (Pleasant, jaundiced) - HEENT HEENT: PERRL, EOMI - Neck Neck: Supple, no meningeal sign, No bony TTP - Cardiac Cardiac: RRR, No murmur - Respiratory Respiratory: No respiratory distress, Clear bilaterally - Abdomen Abdomen: Other (Large ex lap scar, no tenderness) - Derm Derm: Normal color, Warm and dry - Extremities Extremities: No edema, No calf tenderness / cord - Neuro Neuro: Alert and oriented X 3, Normal speech - Psych Psych: Normal mood, Normal affect Results - Vitals Vitals: Vital Signs - 24 hr 05/11/17 20:04 Temperature 36.8 C Heart Rate 101 H Respiratory 14 Rate Blood Pressure 126/72 O2 Saturation 100 Oxygen O2 Source Room air - Labs Labs: Laboratory Tests 05/11/17 05/11/17 05/11/17 20:25 20:25 20:25 WBC 14.7 H RBC 3.52 L Hgb 12.9 L Hct 37.5 L MCV 106.5 H MCH 36.8 H MCHC 34.5 RDW 17.1 H MPV 8.5 Sodium 123 L Potassium 5.8 H Chloride 88 L Carbon Dioxide 25 Anion Gap 10.0 BUN 44 H Creatinine 1.2 Estimated GFR (MDRD) 69 L Glucose 120 H Calcium 10.1 Total Bilirubin 5.5 H AST 84 H ALT 60 Alkaline Phosphatase 162 H Troponin I < 0.04 Total Protein 9.4 H Albumin 3.0 L Globulin 6.4 H Albumin/Globulin Ratio 0.5 L Lipase 77 H PD MEDICAL DECISION MAKING - ED course ED course: 36-year-old gentleman with cirrhosis who presents with hyperkalemia, he also has significant hyponatremia. He appears slightly hypovolemic. He is given Kayexalate and saline. I suspect that if we decrease or stop the Aldactone this should improve. That said given the gravity of his electrolyte abnormalities he will be placed in the hospital and the hospitalist was paged for admission at 9:15 PM. Departure - Departure Disposition: ED Place in Observation Clinical Impression: Hyperkalemia, Hyponatremia Cirrhosis Qualifiers: Hepatic cirrhosis type: alcoholic cirrhosis Ascites presence: with ascites Qualified Code(s): K70.31 - Alcoholic cirrhosis of liver with ascites Condition: Stable
[2017-05-11 21:18] LABS: BAND NEUTROPHILS % (MANUAL) 1 %; BASOPHILS % (MANUAL) 2 %; EOSINOPHILS % (MANUAL) 4 %; LYMPHOCYTES % (MANUAL) 26 %; NEUTROPHILS % (MANUAL) 59 %; TOTAL CELLS COUNTED 100
[2017-05-11 21:20] LABS: NP AUTO DIFFERENTIAL? YES; NP MAN DIFFERENTIAL? NO; PLATELET ESTIMATE, MANUAL NORMAL (130-450,000) (NORMAL); PLATELET MORPHOLOGY 1+ LARGE PLATELETS (NORMAL)
[2017-05-11] MEDS ORDERED: SODIUM POLYSTYRENE SULFONATE 15 GM/60 ML BOTTLE ONE (21:21)
[2017-05-11] MEDS ORDERED: ONDANSETRON 4 MG/2 ML VIAL IVP PRN (23:02)
[2017-05-11] MEDS ORDERED: SODIUM CHLORIDE FLUSH 0.9% 10 ML SYRINGE IVP PRN (23:02)
[2017-05-12] MEDS ORDERED: SODIUM CHLORIDE 0.9% 250 ML IV SCH (00:10)
[2017-05-12] MEDS: HYDROmorphone 2 MG TABLET PO PRN ×4 (02:08→13:51)
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
[2017-05-12 05:55] LABS: BILIRUBIN,URINE NEGATIVE (NEGATIVE); PH,URINE 6.5 PH (5.0-7.5)
[2017-05-12 06:01] LABS: WBC,URINE 0-3 /HPF (0-3)
[2017-05-12 06:02] LABS: UR CULTURE IF IND NOT INDICATED
[2017-05-12] MEDS: SODIUM CHLORIDE FLUSH 0.9% 10 ML SYRINGE IVP SCH ×2 (06:18→13:30)
[2017-05-12 06:22] LABS: HCT - HEMATOCRIT 34.6 % (42.0-52.0); MEAN CORPUSCULAR HEMOGLOBIN 37.1 pg (27.0-31.0); MEAN CORPUSCULAR HGB CONC 34.8 g/dL (32.0-36.0); MEAN CORPUSCULAR VOLUME 106.6 fL (80.0-94.0); MEAN PLATELET VOLUME 8.8 fL (7.4-11.4); RED BLOOD COUNT 3.25 10^6/uL (4.70-6.10); RED CELL DISTRIBUTION WIDTH 17.4 % (12.0-15.0)
[2017-05-12 06:44] LABS: MAGNESIUM 1.8 mg/dL (1.7-2.8); PHOSPHORUS 3.7 mg/dL (2.5-4.6); POTASSIUM 5.2 mmol/L (3.5-5.0)
[2017-05-12] MEDS ORDERED: POLYETHYLENE GLYCOL 3350 17 GM PACKET PO SCH (09:00)
[2017-05-12 14:20] LABS: ALBUMIN/GLOBULIN RATIO 0.5 (1.0-2.2); BILIRUBIN,TOTAL 5.4 mg/dL (0.2-1.0); CALCIUM 9.1 mg/dL (8.5-10.3); CREATININE 0.8 mg/dL (0.6-1.2); INR 1.8 (0.8-1.2); PT - PROTHROMBIN TIME 19.8 secs (9.9-12.6); TOTAL PROTEIN 8.2 g/dL (6.7-8.2)
--- NOTE | 2017-05-12 15:30 | Discharge Plan ---
Discharge Plan Disposition: 01 Home, Self Care Condition: Good Diet: Regular (FR of 2000ml/day.) Shower Restrictions: No Driving Restrictions: No Weight Bearing: Full Weight Additional Instructions or Follow Up instructions: Please see PCP in a few days as a follow up to this hospital stay. Take both diuretics as prescribed. Continue fluid restriction of 2L per day. No Smoking: If you smoke, Please STOP! Call for help. Follow-up with: Otto Hines MD [Primary Care Provider] -
--- NOTE | 2017-05-12 15:33 | DISCHARGE SUMMARY ---
Discharge Summary Admit Date: 05/11/17 Discharge Date: 05/12/17 Discharging Provider: [facility] Primary Care Provider: Otto Hines Code Status: Attempt Resuscitation Condition at Discharge: Good Discharge Disposition: 01 Home, Self Care - DIAGNOSES Admission Diagnoses: Hyperkalemia Hyponatremia Hypovolemia End stage Liver disease Tachycardia Discharge Diagnoses with Status of Each Condition: Hyperkalemia (RESOLVED): Serum potassium on admit was elevated at 6.2, which slowly improved after treatment and was noted to be normal at 5.0 at the time of discharge. Plan: kaxalate and holding diuretics. Diuretics resumed on discharge, and patient will follow up with PCP in the next few days. Hyponatremia: Serum sodium decreased to 121 on admit and improved mildly to 123 at the time of discharge. Plan: IVF x1 liter + 250ml bolus, hold diuretics. Ok to have a regular diet with free water restriction of <1500ml. Will resume home medications with furosemide and spironolactone for home use. Since other labs are stable or improved, patient is safe to resume home medications without the need to be hospitalized. Hypovolemia (RESOLVED): Adrenal insufficiency work-up. TSH was 1.77, Cortisol AM was 11.4, urine sodium indicates SIADH, which is consistent with liver disease process. BUN on admission was elevated at 44 and on discharge down to 33 showing intravascular fluid was improved. Patient no longer showed signs of dehydration and displayed moist mucous membranes. Plan: Re-start Spironolactone and furosemide upon discharge. End stage Liver disease: Evidenced by anemia of chronic disease, physical appearance, mild jaundice, electrolyte abnormalities, abnormal LFTs, signs of portal hypertensive gastropathy such as dilated abdominal veins and skin lesions (petechial lesions and telangiectasias). Patient had a mildly elevated INR at 1.8, a bilirubin of 5.5 on admission down to 5.4 on discharge, and a normal GGT of 30 indicating no recent alcohol use is likely. Plan: Patient is set up with the Transplant clinic and continues ETOH cessation and medical management for proper fluid balance. Tachycardia (RESOLVED): Patient was noted to have heart rates greater than 100 until electrolyte abnormalities were more balanced. Plan: Continue with current plan, telemetry monitoring showed sinus rhythm with rates 80-122. - HPI History of Present Illness: Romná Carl is an unfortunate 36-year old white male with a PMX of ETOH ( claims abstinence x3-4 months), liver cirrhosis and was last admitted in 2016 for PNA and decompensated cirrhosis, but eventually transferred to [facility] on 05/01/17. He came to the ED directly following a clinic visit due to laboratory findings of K+ elevated to 6.2, Na+ decreased to 123 and LFTs abnormalities. Once in the ED he actually didn't have any complaints and states he felt the same as when he was recently released from [facility] hospital. He will be admitted for observation to receive further diuresis, laboratory monitoring and symptom management. - HOSPITAL COURSE Hospital Course: Román had an uneventful observation hospital stay and states he rested well overnight with well managed pain. He denies SOB, chest pain, N/V or new cough. He received IV hydromorphone for chronic "flank" pain which is related to what he describes as a "bad back". He tolerated Kayexalate, IVF boluses, and further testing. He will follow up with his PCP in the next few days for laboratory monitoring. - ALLERGIES Allergies/Adverse Reactions: Allergies Allergy/AdvReac Type Severity Reaction Status Date / Time No Known Drug Allergies Allergy Verified 05/11/17 20:07 - MEDICATIONS Home Medications: Ambulatory Orders Medication Instructions Recorded Confirmed Furosemide [Lasix] 80 tab PO BID 02/15/17 05/12/17 Spironolactone 100 mg PO BID 04/14/17 05/12/17 HYDROmorphone [Dilaudid] 2 mg PO Q4H PRN #20 tablet 05/06/17 05/12/17 - PHYSICAL EXAM AT DISCHARGE General Appearance: positive: No acute distress, Alert Eyes Bilateral: positive: Normal inspection (very mild icterus), PERRL ENT: positive: ENT inspection nml, Pharynx nml, No signs of dehydration Neck: positive: Nml inspection, Thyroid nml, No JVD, Trachea midline Respiratory: positive: Chest non-tender, No respiratory distress, Other ( diminished at bases.) Cardiovascular: positive: Regular rate & rhythm, Systolic murmur, Gallop/S3 Peripheral Pulses: positive: 2+ Abdomen: positive: Non-tender, Nml bowel sounds, Guarding, Hepatomegaly, Splenomegaly Back: positive: Nml inspection Skin: positive: Color nml, No rash, Warm, Dry Extremities: positive: Non-tender, Full ROM, Nml appearance Neurologic/Psychiatric: positive: Oriented x3, CN's nml (2-12), Motor nml, Sensation nml, Mood/affect nml, Weakness - LABS Result Diagrams: 05/12/17 06:04 05/12/17 13:49 - DIAGNOSTIC IMAGING Diagnostic Imaging Results: Final report reviewed Diagnostic Imaging Results Comments: Chest x-ray 05/11/17: FINDINGS: Lungs/Pleura: Clear. No effusion or pneumothorax. Mediastinum: Borderline cardiomegaly, decreased. Upper lobe vessels not distended. IMPRESSION: No acute disease. - FOLLOW UP Follow Up: Please see PCP in a few days as a follow up to this hospital stay. Take both diuretics as prescribed. Continue fluid restriction of 2L per day. - TIME SPENT Time Spent in Discharge (Minutes): 30
[2017-05-12 15:52] VITALS: BP 129/68
== END 2017-05-12 16:08 | disposition home or self-care (01) ==
LOC: ED 19:57 → OBS 23:02
PROVIDERS: ADMIT Internal Medicine; ATTEND Nurse Practitioner
DX: E87.5 Hyperkalemia (principal); E87.1 Hypo-osmolality and hyponatremia; E86.1 Hypovolemia; E86.0 Dehydration; K70.31 Alcoholic cirrhosis of liver with ascites; K70.40 Alcoholic hepatic failure without coma; D63.8 Anemia in other chronic diseases classified elsewhere; B19.20 Unspecified viral hepatitis C without hepatic coma; G89.29 Other chronic pain; M54.9 Dorsalgia, unspecified; F10.21 Alcohol dependence, in remission; Z87.891 Personal history of nicotine dependence
CPT/HCPCS: 36415; 71010; 80048; 80053; 80069; 81001; 82150; 82533; 82977; 83690; 83735; 83930; 83935; 84295; 84300; 84443; 84484; 85025; 85027; 85610; 93005; 96360; 96361; 99284; A9270; G0378; 87086

== ENCOUNTER 2017-05-21 16:13 | Outpatient (CLI) | payer MEDICAID ==
[2017-05-21 17:01] LABS: ALBUMIN/GLOBULIN RATIO 0.5 (1.0-2.2); BILIRUBIN,TOTAL 3.9 mg/dL (0.2-1.0); CALCIUM 8.7 mg/dL (8.5-10.3); CREATININE 0.7 mg/dL (0.6-1.2); POTASSIUM 4.4 mmol/L (3.5-5.0); TOTAL PROTEIN 8.2 g/dL (6.7-8.2)
== END 2017-05-21 16:14 | disposition home or self-care (01) ==
LOC: LAB 16:13
PROVIDERS: ATTEND Internal Medicine
DX: K70.31 Alcoholic cirrhosis of liver with ascites (principal)
CPT/HCPCS: 36415; 80053

== ENCOUNTER 2017-06-22 15:33 | Outpatient (CLI) | payer MEDICAID ==
[2017-06-22 16:02] LABS: ALBUMIN/GLOBULIN RATIO 0.5 (1.0-2.2); BILIRUBIN,TOTAL 3.4 mg/dL (0.2-1.0); CALCIUM 8.6 mg/dL (8.5-10.3); CREATININE 0.6 mg/dL (0.6-1.2); INR 1.7 (0.8-1.2); POTASSIUM 4.1 mmol/L (3.5-5.0); PT - PROTHROMBIN TIME 18.3 secs (9.9-12.6); TOTAL PROTEIN 7.9 g/dL (6.7-8.2)
== END 2017-06-22 15:34 | disposition home or self-care (01) ==
LOC: LAB 15:33
PROVIDERS: ATTEND Family Medicine
DX: K72.90 Hepatic failure, unspecified without coma (principal); K70.31 Alcoholic cirrhosis of liver with ascites
CPT/HCPCS: 36415; 80053; 82140; 85610

== ENCOUNTER 2017-07-06 18:49 | Emergency (ER) | payer MEDICAID ==
[2017-07-06 19:40] LABS: BASOPHILS # (AUTO) 0.1 10^3/uL (0.0-0.1); BASOPHILS % (AUTO) 1.3 %; EOSINOPHILS # (AUTO) 0.2 10^3/uL (0.0-0.7); EOSINOPHILS % (AUTO) 2.3 %; HGB - HEMOGLOBIN 12.9 g/dL (14.0-18.0); LYMPHOCYTES # (AUTO) 2.2 10^3/uL (1.5-3.5); LYMPHOCYTES % (AUTO) 23.2 %; MEAN CORPUSCULAR HEMOGLOBIN 37.8 pg (27.0-31.0); MEAN CORPUSCULAR HGB CONC 34.8 g/dL (32.0-36.0); MEAN CORPUSCULAR VOLUME 108.7 fL (80.0-94.0); MEAN PLATELET VOLUME 8.6 fL (7.4-11.4); MONOCYTES # (AUTO) 1.1 10^3/uL (0.0-1.0); MONOCYTES % (AUTO) 11.3 %; NEUTROPHILS # (AUTO) 5.9 10^3/uL (1.5-6.6); NEUTROPHILS % (AUTO) 61.9 %; PLT - PLATELET COUNT 195 10^3/uL (130-450); RED BLOOD COUNT 3.41 10^6/uL (4.70-6.10); RED CELL DISTRIBUTION WIDTH 14.4 % (12.0-15.0); WHITE BLOOD COUNT 9.6 x10^3/uL (4.8-10.8)
[2017-07-06 19:54] LABS: ALBUMIN 2.6 g/dL (3.2-5.5); ALBUMIN/GLOBULIN RATIO 0.5 (1.0-2.2); BILIRUBIN,TOTAL 2.7 mg/dL (0.2-1.0); CALCIUM 8.9 mg/dL (8.5-10.3); CREATININE 0.9 mg/dL (0.6-1.2); TOTAL PROTEIN 8.1 g/dL (6.7-8.2)
[2017-07-06 19:58] LABS: VBG BASE EXCESS 2.4 mmol/L (-2 - +2); VBG PCO2 29.2 mmHg (41-51); VBG PH 7.535 (7.31-7.41)
[2017-07-06] MEDS ORDERED: SODIUM CHLORIDE 0.9% 1,000 ML IV ONE (20:07)
[2017-07-06 20:27] LABS: MUDS CUTOFF CONCENTRATIONS CUTOFF CONC BELOW:
[2017-07-06 20:44] LABS: COCAINE SCREEN URINE NEGATIVE (NEGATIVE)
[2017-07-06 20:45] LABS: AMPHETAMINE SCREEN,URINE NEGATIVE (NEGATIVE); BENZODIAZEPINES SCREEN, URINE NEGATIVE (NEGATIVE); METHADONE SCREEN, URINE NEGATIVE (NEGATIVE); METHAMPHETAMINES SCREEN, URINE NEGATIVE (NEGATIVE); OPIATE SCREEN, URINE NEGATIVE (NEGATIVE); OXYCODONE SCREEN, URINE NEGATIVE (NEGATIVE); PROPOXYPHENE SCREEN, URINE NEGATIVE (NEGATIVE); TRICYCLIC ANTIDEPRESSANT,URINE NEGATIVE (NEGATIVE)
--- NOTE | 2017-07-06 20:59 | ED Physician Documentation ---
History of Present Illness - Stated complaint Stated Complaint: DIZZINESS/SHAKY - Chief complaint Chief Complaint: Neuro - History obtained from History obtained from: Patient, Family - History of Present Illness Timing: Today - Additonal information Additional information: Patient is a 36 year old male with a history of cirrhosis secondary to alcohol abuse who is presenting to the emergency department for feeling weak and shakey. patient and mother state that it lasted about an hour. Upon initial evaluation in the emergency department patient stated that he was feeling a bit better but still a little off. patient has not had a drink for months he states. he is on the list for transplant and is on a low sodium low fluid diet. patient denies any fever, chills or abdominal pain. Review of Systems Constitutional: denies: Fever, Chills Eyes: denies: Decreased vision, Photophobia Ears: reports: Reviewed and negative Nose: reports: Reviewed and negative Throat: denies: Oral lesions / sores, Sore throat Cardiac: denies: Chest pain / pressure, Palpitations Respiratory: denies: Dyspnea, Cough, Wheezing GI: reports: Nausea. denies: Abdominal Pain, Vomiting, Constipation, Diarrhea : denies: Dysuria, Frequency Skin: denies: Rash, Lesions Neurologic: reports: Generalized weakness, Numbness. denies: Confused, Altered mental status Immunocompromised: denies: Immunocompromised PD PAST MEDICAL HISTORY - Past Medical History Cardiovascular: Other Respiratory: Pneumonia, Shortness of breath Neuro: Headache/migraine Endocrine/Autoimmune: None, Other GI: GERD, Hepatitis, Cirrhosis : Frequency HEENT: None, Other Psych: Anxiety Musculoskeletal: Fatigue, Chronic back pain Derm: None - Past Surgical History Past Surgical History: Yes General: Appendectomy, Splenectomy, Other Ortho: Other HEENT: Cataracts - Present Medications Home Medications: Ambulatory Orders Medication Instructions Recorded Confirmed Furosemide [Lasix] 80 tab PO BID 02/15/17 07/06/17 Spironolactone 100 mg PO BID 04/14/17 07/06/17 Lactulose 30 gm ORAL DAILY 07/06/17 07/06/17 - Allergies Allergies/Adverse Reactions: Allergies Allergy/AdvReac Type Severity Reaction Status Date / Time No Known Drug Allergies Allergy Verified 07/06/17 18:58 - Social History Does the pt smoke?: No Smoking Status: Never smoker Does the pt drink ETOH?: No Does the pt have substance abuse?: No - Immunizations Immunizations are current?: Yes - POLST Patient has POLST: No PD ED PE NORMAL - General General: Alert and oriented X 3, No acute distress - HEENT HEENT: Atraumatic, PERRL - Neck Neck: Supple, no meningeal sign, No JVD - Cardiac Cardiac: RRR, No murmur - Respiratory Respiratory: No respiratory distress, Clear bilaterally - Abdomen Abdomen: Soft, Non tender, Non distended - Derm Derm: Normal color, No rash - Extremities Extremities: No deformity, Normal ROM s pain - Neuro Neuro: Alert and oriented X 3, financial project manager 2-12 intact, No motor deficit, No sensory deficit, Normal speech Eye Opening: Spontaneous Motor: Obeys Commands Verbal: Oriented GCS Score: 15 PD ED PE EXPANDED - General General: Alert - HEENT HEENT: Dry mucous membranes - Eyes Eyes: Scleral icterus (mnimal) Results - Vitals Vitals: Vital Signs - 24 hr 07/06/17 07/06/17 07/06/17 18:55 19:22 20:17 Temperature 36.7 C Heart Rate 115 H 96 100 Respiratory 24 18 18 Rate Blood Pressure 127/71 115/63 137/67 H O2 Saturation 97 100 97 07/06/17 21:07 Temperature Heart Rate 97 Respiratory 18 Rate Blood Pressure 135/73 H O2 Saturation 97 Oxygen O2 Source Room air - EKG (time done) 1913 Rate: Rate (enter#) (97) Rhythm: NSR Thurmond: Normal Intervals: Normal UT Ischemia: ST elevation c/w repol Compare to prior EKG: Unchanged from prior EKG - Labs Labs: Laboratory Tests 07/06/17 07/06/17 07/06/17 19:01 19:20 19:20 WBC 9.6 RBC 3.41 L Hgb 12.9 L Hct 37.1 L MCV 108.7 H MCH 37.8 H MCHC 34.8 RDW 14.4 Plt Count 195 MPV 8.6 Neut # 5.9 Lymph # 2.2 Mitchell # 1.1 H Eos # 0.2 Baso # 0.1 Absolute Nucleated RBC 0.01 Nucleated RBC % 0.1 VBG pH VBG pCO2 VBG pO2 VBG HCO3 VBG Total CO2 VBG O2 Saturation VBG Base Excess Sodium 130 L Potassium 4.2 Chloride 95 L Carbon Dioxide 24 Anion Gap 11.0 BUN 20 Creatinine 0.9 Estimated GFR (MDRD) 97 Glucose 127 H POC Whole Bld Glucose 145 H Calcium 8.9 Total Bilirubin 2.7 H AST 115 H ALT 74 H Alkaline Phosphatase 188 H Ammonia Total Protein 8.1 Albumin 2.6 L Globulin 5.5 H Albumin/Globulin Ratio 0.5 L Lipase 63 H TSH Urine Opiates Screen Ur Oxycodone Screen Urine Methadone Screen Ur Propoxyphene Screen Ur Barbiturates Screen Ur Tricyclics Screen Ur Phencyclidine Scrn Ur Amphetamine Screen U Methamphetamines Scrn U Benzodiazepines Scrn Urine Cocaine Screen U Cannabinoids Screen Ethyl Alcohol 07/06/17 07/06/17 07/06/17 19:20 19:20 19:25 WBC RBC Hgb Hct MCV MCH MCHC RDW Plt Count MPV Neut # Lymph # Mitchell # Eos # Baso # Absolute Nucleated RBC Nucleated RBC % VBG pH 7.535 H VBG pCO2 29.2 L VBG pO2 72.0 H VBG HCO3 24.1 VBG Total CO2 25.0 VBG O2 Saturation 96.1 H VBG Base Excess 2.4 H Sodium Potassium Chloride Carbon Dioxide Anion Gap BUN Creatinine Estimated GFR (MDRD) Glucose POC Whole Bld Glucose Calcium Total Bilirubin AST ALT Alkaline Phosphatase Ammonia Total Protein Albumin Globulin Albumin/Globulin Ratio Lipase TSH 0.91 Urine Opiates Screen Ur Oxycodone Screen Urine Methadone Screen Ur Propoxyphene Screen Ur Barbiturates Screen Ur Tricyclics Screen Ur Phencyclidine Scrn Ur Amphetamine Screen U Methamphetamines Scrn U Benzodiazepines Scrn Urine Cocaine Screen U Cannabinoids Screen Ethyl Alcohol < 5.0 07/06/17 07/06/17 20:15 20:24 WBC RBC Hgb Hct MCV MCH MCHC RDW Plt Count MPV Neut # Lymph # Mitchell # Eos # Baso # Absolute Nucleated RBC Nucleated RBC % VBG pH VBG pCO2 VBG pO2 VBG HCO3 VBG Total CO2 VBG O2 Saturation VBG Base Excess Sodium Potassium Chloride Carbon Dioxide Anion Gap BUN Creatinine Estimated GFR (MDRD) Glucose POC Whole Bld Glucose Calcium Total Bilirubin AST ALT Alkaline Phosphatase Ammonia 43.3 H Total Protein Albumin Globulin Albumin/Globulin Ratio Lipase TSH Urine Opiates Screen NEGATIVE Ur Oxycodone Screen NEGATIVE Urine Methadone Screen NEGATIVE Ur Propoxyphene Screen NEGATIVE Ur Barbiturates Screen NEGATIVE Ur Tricyclics Screen NEGATIVE Ur Phencyclidine Scrn NEGATIVE Ur Amphetamine Screen NEGATIVE U Methamphetamines Scrn NEGATIVE U Benzodiazepines Scrn NEGATIVE Urine Cocaine Screen NEGATIVE U Cannabinoids Screen NEGATIVE Ethyl Alcohol PD MEDICAL DECISION MAKING - ED course Complexity details: reviewed old records, reviewed results, re-evaluated patient , considered differential, d/w patient, d/w family ED course: Patient was seen and examined at bedside. IV access was gained and labs were drawn. patient was started on a fluid bolus. ekg was performed and unchanged from previous ekg. patient's labs, although abnormal were unchanged for the patient. patient's blood pressure improved with the fluids. patient had no other episodes of shaking while in the emergency department. Patient and mother were made aware of the findings and given ample time to ask and answer questions. Patient required no further work up and was stable for discharge with outpatient follow up. Departure - Departure Disposition: 01 Home, Self Care Clinical Impression: Cirrhosis, Dehydration Instructions: ED Dehydration Follow-Up: Otto Hines MD [Primary Care Provider] - Within 3 Days Comments: Your diagnostics today were within normal limits. Your symptoms were likely secondary to mild dehydration causing low blood pressure. It is important that you adhere to your diet, but if you become symptomatic again you should increase your hydration. You should call your doctor on sunday to schedule a follow up appointment. You may return to the emergency department at any time for new, worsening or uncontrollable symptoms. Discharge Date/Time: 07/06/17 21:18
[2017-07-06 21:08] VITALS: BP 135/73
== END 2017-07-06 21:18 | disposition home or self-care (01) ==
LOC: ED 18:49
DX: E86.0 Dehydration (principal); K70.30 Alcoholic cirrhosis of liver without ascites; I95.9 Hypotension, unspecified; K21.9 Gastro-esophageal reflux disease without esophagitis
CPT/HCPCS: 36415; 80053; 80306; 80320; 82140; 82803; 83690; 84443; 85025; 93005; 96360; 99284

== ENCOUNTER 2017-09-07 01:54 | Outpatient (CLI) | payer MEDICAID | END 2017-09-07 01:55 | disposition critical access hospital (66) | LOC: EMS 01:54 | PROVIDERS: ATTEND Surgery | DX: K92.0 Hematemesis (principal) | CPT/HCPCS: A0425; A0429 ==

== ENCOUNTER 2017-09-07 02:11 | Emergency (ER) | payer MEDICAID ==
--- NOTE | 2017-09-07 02:10 | ED Physician Documentation ---
PD HPI GI BLEED - Stated complaint Stated Complaint: VOMITING BLOOD - History obtained from History obtained from: Patient, EMS - History of Present Illness Timing - duration: Hours (2) Timing - details: Abrupt onset Pain level max: 0 Pain level now: 0 Associated symptoms: Vomiting, Hematemesis. No: Coffee ground emesis, BRBPR, Maroon stool, Black/tarry stool Similar symptoms before: Diagnosis (cirrhosis, esophageal varices, stomach ulcers) Recently seen: Not recently seen - Additional information Additional information: 2-3 episodes of vomiting with bright red blood streaks that began approximately 2 hours ago, mild nausea. Denies pain. He has h/o esophageal varices, cirrhosis , and stomach ulcers, although he has no h/o hematemesis in the past. He had his first, and most recent, EGD last month and this revealed the varices as well as stomach ulcers. Review of Systems Constitutional: denies: Fever, Chills, Sweats Cardiac: reports: Reviewed and negative Respiratory: reports: Reviewed and negative GI: reports: Nausea, Vomiting, Hematemesis. denies: Abdominal Pain, Bloody / black stool PD PAST MEDICAL HISTORY - Past Medical History Past Medical History: Yes GI: Esophageal varices, Cirrhosis - Present Medications Home Medications: Ambulatory Orders Medication Instructions Recorded Confirmed Furosemide [Lasix] 80 tab PO BID 02/15/17 07/06/17 Spironolactone 100 mg PO BID 04/14/17 07/06/17 Lactulose 30 gm ORAL DAILY 07/06/17 07/06/17 - Allergies Allergies/Adverse Reactions: Allergies Allergy/AdvReac Type Severity Reaction Status Date / Time No Known Drug Allergies Allergy Verified 09/07/17 02:18 PD ED PE NORMAL - Vitals Vital signs reviewed: Yes - General General: Alert and oriented X 3, No acute distress, Well developed/nourished - HEENT HEENT: Moist mucous membranes - Neck Neck: Supple, no meningeal sign - Cardiac Cardiac: RRR, No murmur - Respiratory Respiratory: No respiratory distress, Clear bilaterally - Abdomen Abdomen: Soft, Non tender, Non distended - Derm Derm: Normal color, Warm and dry Results - Vitals Vitals: Oxygen O2 Source Room air - Labs Labs: Laboratory Tests 09/07/17 09/07/17 09/07/17 02:20 02:20 02:20 WBC 11.8 H RBC 3.26 L Hgb 11.7 L Hct 34.6 L MCV 106.1 H MCH 35.9 H MCHC 33.8 RDW 14.0 Plt Count 205 MPV 8.3 Neut # 5.3 Lymph # 4.4 H [place] # 1.6 H Eos # 0.5 Baso # 0.1 Absolute Nucleated RBC 0.00 Band Neuts % (Manual) Not Reportable Abnorm Lymph % (Manual) Not Reportable Nucleated RBC % 0.0 Neutrophils # (Manual) Not Reportable Lymphocytes # (Manual) Not Reportable Monocytes # (Manual) Not Reportable Eosinophils # (Manual) Not Reportable Basophils # (Manual) Not Reportable Differential Comment MANUAL=AUTO DIFF Platelet Estimate NORMAL (130-450,000) RBC Morph Micro Appear NORMAL APPEARANCE PT 16.0 H INR 1.4 H APTT 31.4 Sodium Potassium Chloride Carbon Dioxide Anion Gap BUN Creatinine Estimated GFR (MDRD) Glucose Calcium Total Bilirubin AST ALT Alkaline Phosphatase Ammonia 94.4 H* Total Protein Albumin Globulin Albumin/Globulin Ratio Lipase 09/07/17 09/07/17 02:20 05:30 WBC RBC Hgb 11.3 L Hct 33.4 L MCV MCH MCHC RDW Plt Count MPV Neut # Lymph # [place] # Eos # Baso # Absolute Nucleated RBC Band Neuts % (Manual) Abnorm Lymph % (Manual) Nucleated RBC % Neutrophils # (Manual) Lymphocytes # (Manual) Monocytes # (Manual) Eosinophils # (Manual) Basophils # (Manual) Differential Comment Platelet Estimate RBC Morph Micro Appear PT INR APTT Sodium 134 L Potassium 4.1 Chloride 103 Carbon Dioxide 24 Anion Gap 7.0 BUN 22 H Creatinine 0.8 Estimated GFR (MDRD) 111 Glucose 113 H Calcium 8.3 L Total Bilirubin 1.8 H AST 60 H ALT 46 Alkaline Phosphatase 134 H Ammonia Total Protein 7.1 Albumin 2.5 L Globulin 4.6 H Albumin/Globulin Ratio 0.5 L Lipase 50 PD MEDICAL DECISION MAKING - ED course Complexity details: reviewed old records, reviewed results, re-evaluated patient , considered differential, d/w patient ED course: D/W Dr. Flores (on-call GI for [facility] (patient usually sees Dr. Sifuentes)). He reviewed the EGD report, recommends period of observation but says this can be done in ED setting and that unless symptoms worsen, he would not need to be transferred to another facility nor need admission to [facility]. I discussed this with patient, and he is agreeable and comfortable with plan, which is ED observation and repeat H/H. After further ED observation, he remained asymptomatic (his nausea and vomiting had resolved prior to ED arrival ) and had no recurrence of hematemesis/vomiting. His repeat h/h was stable. His ammonia level is quite elevated, but he exhibits no mental status abnormality; he is awake, alert, oriented x 3, and conversant. He has no asterixis, no evidence of acute hepatic encephalopathy. He recently increased his lactulose to TID. Departure - Departure Disposition: 01 Home, Self Care Clinical Impression: Upper gastrointestinal bleeding Condition: Good Instructions: ED Bleed UGI Stable Comments: Contact your material expediter to arrange follow-up appointment as well as to discuss options to treat your high ammonia level (it was 94 today; this is very high). Discharge Date/Time: 09/07/17 06:06
[2017-09-07 02:40] LABS: BASOPHILS # (AUTO) 0.1 10^3/uL (0.0-0.1); EOSINOPHILS # (AUTO) 0.5 10^3/uL (0.0-0.7); INR 1.4 (0.8-1.2); MEAN CORPUSCULAR HEMOGLOBIN 35.9 pg (27.0-31.0); MEAN PLATELET VOLUME 8.3 fL (7.4-11.4); MONOCYTES # (AUTO) 1.6 10^3/uL (0.0-1.0); PLT - PLATELET COUNT 205 10^3/uL (130-450)
[2017-09-07 02:43] LABS: ALBUMIN 2.5 g/dL (3.2-5.5); ALBUMIN/GLOBULIN RATIO 0.5 (1.0-2.2); BASOPHILS % (AUTO) 0.5 %; BILIRUBIN,TOTAL 1.8 mg/dL (0.2-1.0); CALCIUM 8.3 mg/dL (8.5-10.3); CREATININE 0.8 mg/dL (0.6-1.2); EOSINOPHILS % (AUTO) 4.2 %; HGB - HEMOGLOBIN 11.7 g/dL (14.0-18.0); LYMPHOCYTES # (AUTO) 4.4 10^3/uL (1.5-3.5); LYMPHOCYTES % (AUTO) 37.3 %; MEAN CORPUSCULAR HGB CONC 33.8 g/dL (32.0-36.0); MEAN CORPUSCULAR VOLUME 106.1 fL (80.0-94.0); MONOCYTES % (AUTO) 13.2 %; NEUTROPHILS # (AUTO) 5.3 10^3/uL (1.5-6.6); NEUTROPHILS % (AUTO) 44.8 %; RED BLOOD COUNT 3.26 10^6/uL (4.70-6.10); TOTAL PROTEIN 7.1 g/dL (6.7-8.2); WHITE BLOOD COUNT 11.8 x10^3/uL (4.8-10.8)
[2017-09-07 03:25] LABS: DIFFERENTIAL COMMENT MANUAL=AUTO DIFF; PLATELET ESTIMATE, MANUAL NORMAL (130-450,000) (NORMAL); RBC MORPHOLOGY (MULTIPLE) NORMAL APPEARANCE (NORMAL)
[2017-09-07] MEDS ORDERED: ONDANSETRON 4 MG/2 ML VIAL IVP STA (03:26)
[2017-09-07] MEDS ORDERED: PANTOPRAZOLE 40 MG VIAL IVP STA (04:02)
[2017-09-07 05:38] LABS: HGB - HEMOGLOBIN 11.3 g/dL (14.0-18.0)
[2017-09-07 06:06] VITALS: BP 106/56
== END 2017-09-07 06:06 | disposition home or self-care (01) ==
LOC: EDUNIT# → ED 02:11
DX: K92.2 Gastrointestinal hemorrhage, unspecified (principal); R79.89 Other specified abnormal findings of blood chemistry
CPT/HCPCS: 36415; 80053; 82140; 83690; 85014; 85018; 85025; 85610; 85730; 96374; 96375; 99284

== ENCOUNTER 2017-09-20 16:35 | Outpatient (CLI) | payer MEDICAID ==
[2017-09-20 16:59] LABS: BASOPHILS % (AUTO) 1.6 %; HGB - HEMOGLOBIN 13.1 g/dL (14.0-18.0); LYMPHOCYTES % (AUTO) 27.4 %; MEAN CORPUSCULAR HGB CONC 34.1 g/dL (32.0-36.0); MEAN CORPUSCULAR VOLUME 105.5 fL (80.0-94.0); MEAN PLATELET VOLUME 7.9 fL (7.4-11.4); MONOCYTES % (AUTO) 17.9 %; NEUTROPHILS % (AUTO) 50.1 %; PLT - PLATELET COUNT 192 10^3/uL (130-450); RED BLOOD COUNT 3.65 10^6/uL (4.70-6.10); RED CELL DISTRIBUTION WIDTH 14.1 % (12.0-15.0); WHITE BLOOD COUNT 10.5 x10^3/uL (4.8-10.8)
[2017-09-20 17:01] LABS: ABNORMAL LYMPHS % (MANUAL) 0 %
[2017-09-20 17:06] LABS: INR 1.4 (0.8-1.2); PT - PROTHROMBIN TIME 15.3 secs (9.9-12.6)
[2017-09-20 17:08] LABS: ALBUMIN 2.7 g/dL (3.2-5.5); ALBUMIN/GLOBULIN RATIO 0.5 (1.0-2.2); CALCIUM 8.5 mg/dL (8.5-10.3); CREATININE 0.7 mg/dL (0.6-1.2); TOTAL PROTEIN 7.9 g/dL (6.7-8.2)
[2017-09-20 17:16] LABS: BAND NEUTROPHILS % (MANUAL) 2 %; DIFFERENTIAL COMMENT MANUAL DIFFERENTIAL; EOSINOPHILS # (MANUAL) 0.1 10^3/uL (0-0.7); LYMPHOCYTES # (MANUAL) 3.5 10^3/uL (1.5-3.5); LYMPHOCYTES % (MANUAL) 33 %; MONOCYTES # (MANUAL) 1.5 10^3/uL (0.0-1.0); NEUTROPHILS # (MANUAL) 5.5 10^3/uL (1.5-6.6); NEUTROPHILS % (MANUAL) 50 %; PLATELET ESTIMATE, MANUAL NORMAL (130-450,000) (NORMAL); PLATELET MORPHOLOGY NORMAL APPEARANCE (NORMAL)
== END 2017-09-20 16:36 | disposition home or self-care (01) ==
LOC: LAB 16:35
PROVIDERS: ATTEND Family Medicine
DX: K70.31 Alcoholic cirrhosis of liver with ascites (principal); K72.91 Hepatic failure, unspecified with coma
CPT/HCPCS: 36415; 80053; 82140; 82728; 85025; 85610

== ENCOUNTER 2017-10-11 16:35 | Outpatient (CLI) | payer MEDICAID ==
[2017-10-11 17:07] LABS: BASOPHILS # (AUTO) 0.2 10^3/uL (0.0-0.1); BASOPHILS % (AUTO) 1.7 %; EOSINOPHILS # (AUTO) 0.3 10^3/uL (0.0-0.7); EOSINOPHILS % (AUTO) 2.5 %; HGB - HEMOGLOBIN 12.3 g/dL (14.0-18.0); LYMPHOCYTES # (AUTO) 3.5 10^3/uL (1.5-3.5); LYMPHOCYTES % (AUTO) 31.4 %; MEAN CORPUSCULAR HEMOGLOBIN 35.4 pg (27.0-31.0); MEAN CORPUSCULAR HGB CONC 33.8 g/dL (32.0-36.0); MEAN CORPUSCULAR VOLUME 104.7 fL (80.0-94.0); MEAN PLATELET VOLUME 8.5 fL (7.4-11.4); MEAN RETIC VALUE 127.4; MONOCYTES # (AUTO) 1.4 10^3/uL (0.0-1.0); MONOCYTES % (AUTO) 12.7 %; NEUTROPHILS # (AUTO) 5.7 10^3/uL (1.5-6.6); NEUTROPHILS % (AUTO) 51.7 %; PLT - PLATELET COUNT 196 10^3/uL (130-450); RED BLOOD COUNT 3.49 10^6/uL (4.70-6.10); RED CELL DISTRIBUTION WIDTH 14.2 % (12.0-15.0); WHITE BLOOD COUNT 11.1 x10^3/uL (4.8-10.8)
[2017-10-11 17:20] LABS: % IRON SATURATION 38 % (20-50); IRON 90 ug/dL (45-182); TOTAL IRON BINDING CAPACITY 237 ug/dL (250-450); TRANSFERRIN 169 mg/dL (180-329)
[2017-10-11 17:36] LABS: FERRITIN 961.8 ng/mL (23.9-336.2)
[2017-10-11 17:40] LABS: FOLATE 17.14 ng/mL (5.90 - >24.8)
== END 2017-10-11 16:36 | disposition home or self-care (01) ==
LOC: LAB 16:35
PROVIDERS: ATTEND Family Medicine
DX: D53.9 Nutritional anemia, unspecified (principal); R77.8 Other specified abnormalities of plasma proteins; K72.90 Hepatic failure, unspecified without coma
CPT/HCPCS: 36415; 82607; 82728; 82746; 83540; 84466; 85025; 85044

== ENCOUNTER 2017-11-06 09:54 | Outpatient (CLI) | payer MEDICAID ==
[2017-11-06 10:37] LABS: ALBUMIN/GLOBULIN RATIO 0.5 (1.0-2.2); BILIRUBIN,TOTAL 2.5 mg/dL (0.2-1.0); CALCIUM 9.1 mg/dL (8.5-10.3); CREATININE 0.8 mg/dL (0.6-1.2); TOTAL PROTEIN 8.6 g/dL (6.7-8.2)
[2017-11-08 12:12] LABS: ANA SCREEN NEGATIVE (NEGATIVE)
[2017-11-08 15:05] LABS: CERULOPLASMIN 31 mg/dL (18-36)
[2017-11-09 22:56] LABS: SMOOTH MUSCLE IGG AB 20 U
== END 2017-11-06 09:55 | disposition home or self-care (01) ==
LOC: LAB 09:54
PROVIDERS: ATTEND Internal Medicine
DX: K74.60 Unspecified cirrhosis of liver (principal); E83.110 Hereditary hemochromatosis
CPT/HCPCS: 36415; 80053; 81256; 81599; 82103; 82390; 83516; 86038; 86255

== ENCOUNTER 2017-11-16 14:07 | Outpatient (CLI) | payer MEDICAID ==
[2017-11-16 14:22] LABS: BASOPHILS % (AUTO) 0.5 %; EOSINOPHILS % (AUTO) 1.6 %; LYMPHOCYTES % (AUTO) 21.1 %; MEAN CORPUSCULAR HEMOGLOBIN 35.6 pg (27.0-31.0); MEAN CORPUSCULAR HGB CONC 33.7 g/dL (32.0-36.0); MEAN CORPUSCULAR VOLUME 105.4 fL (80.0-94.0); MEAN PLATELET VOLUME 7.5 fL (7.4-11.4); MONOCYTES % (AUTO) 22.5 %; NEUTROPHILS % (AUTO) 54.3 %; PLT - PLATELET COUNT 191 10^3/uL (130-450); RED BLOOD COUNT 3.66 10^6/uL (4.70-6.10); RED CELL DISTRIBUTION WIDTH 14.6 % (12.0-15.0); WHITE BLOOD COUNT 12.6 x10^3/uL (4.8-10.8)
[2017-11-16 14:36] LABS: ALBUMIN 2.7 g/dL (3.2-5.5); ALBUMIN/GLOBULIN RATIO 0.5 (1.0-2.2); BILIRUBIN,TOTAL 2.6 mg/dL (0.2-1.0); CALCIUM 8.4 mg/dL (8.5-10.3); CREATININE 0.8 mg/dL (0.6-1.2); TOTAL PROTEIN 7.7 g/dL (6.7-8.2)
[2017-11-16 14:41] LABS: ABNORMAL LYMPHS % (MANUAL) 0 %
[2017-11-16 15:47] LABS: BAND NEUTROPHILS % (MANUAL) 1 %; BASOPHILS # (MANUAL) 0.3 10^3/uL (0-0.1); BASOPHILS % (MANUAL) 2 %; EOSINOPHILS # (MANUAL) 0.4 10^3/uL (0-0.7); LYMPHOCYTES # (MANUAL) 2.9 10^3/uL (1.5-3.5); LYMPHOCYTES % (MANUAL) 21 %; MONOCYTES # (MANUAL) 1.8 10^3/uL (0.0-1.0); NEUTROPHILS # (MANUAL) 7.3 10^3/uL (1.5-6.6); NEUTROPHILS % (MANUAL) 57 %
[2017-11-16 15:50] LABS: DIFFERENTIAL COMMENT MANUAL DIFFERENTIAL; PLATELET ESTIMATE, MANUAL NORMAL (130-450,000) (NORMAL); PLATELET MORPHOLOGY 1+ GIANT PLATELETS (NORMAL)
== END 2017-11-16 14:08 | disposition home or self-care (01) ==
LOC: LAB 14:07
PROVIDERS: ATTEND Internal Medicine
DX: K74.60 Unspecified cirrhosis of liver (principal)
CPT/HCPCS: 36415; 80053; 85025

== ENCOUNTER 2017-11-23 11:32 | Outpatient (CLI) | payer MEDICAID ==
[2017-11-23 11:52] LABS: CREATININE 1.1 mg/dL (0.6-1.2)
== END 2017-11-23 11:33 | disposition home or self-care (01) ==
LOC: LAB 11:32
PROVIDERS: ATTEND Internal Medicine
DX: K74.60 Unspecified cirrhosis of liver (principal)
CPT/HCPCS: 36415; 80048

== ENCOUNTER 2017-12-18 16:27 | Emergency (ER) | payer MEDICAID ==
[2017-12-18 17:00] LABS: BILIRUBIN,URINE NEGATIVE (NEGATIVE); GLUCOSE, URINE (UA) NEGATIVE (NEGATIVE); KETONES,URINE (UA) NEGATIVE (NEGATIVE); LEUKOCYTE ESTERASE, URINE NEGATIVE (NEGATIVE); NITRITE,URINE NEGATIVE (NEGATIVE); OCCULT BLOOD,URINE NEGATIVE (NEGATIVE); PROTEIN,URINE NEGATIVE (NEGATIVE); UROBILINOGEN,URINE 0.2 (NORMAL) E.U./dL (NORMAL)
[2017-12-18 17:01] LABS: CLARITY,URINE CLEAR (CLEAR)
[2017-12-18 17:13] LABS: BASOPHILS # (AUTO) 0.1 10^3/uL (0.0-0.1); EOSINOPHILS # (AUTO) 0.4 10^3/uL (0.0-0.7); EOSINOPHILS % (AUTO) 3.7 %; HGB - HEMOGLOBIN 13.1 g/dL (14.0-18.0); LYMPHOCYTES # (AUTO) 2.3 10^3/uL (1.5-3.5); LYMPHOCYTES % (AUTO) 19.9 %; MEAN CORPUSCULAR HEMOGLOBIN 36.7 pg (27.0-31.0); MEAN CORPUSCULAR HGB CONC 34.1 g/dL (32.0-36.0); MEAN CORPUSCULAR VOLUME 107.8 fL (80.0-94.0); MEAN PLATELET VOLUME 7.9 fL (7.4-11.4); MONOCYTES # (AUTO) 1.9 10^3/uL (0.0-1.0); MONOCYTES % (AUTO) 16.6 %; NEUTROPHILS # (AUTO) 6.8 10^3/uL (1.5-6.6); NEUTROPHILS % (AUTO) 58.8 %; PLT - PLATELET COUNT 233 10^3/uL (130-450); RED BLOOD COUNT 3.58 10^6/uL (4.70-6.10); RED CELL DISTRIBUTION WIDTH 14.2 % (12.0-15.0); WHITE BLOOD COUNT 11.6 x10^3/uL (4.8-10.8)
[2017-12-18 17:22] LABS: ALBUMIN 2.8 g/dL (3.2-5.5); ALBUMIN/GLOBULIN RATIO 0.5 (1.0-2.2); BILIRUBIN,TOTAL 2.2 mg/dL (0.2-1.0); CALCIUM 8.8 mg/dL (8.5-10.3); CREATININE 0.8 mg/dL (0.6-1.2); TOTAL PROTEIN 8.1 g/dL (6.7-8.2)
--- NOTE | 2017-12-18 17:37 | ED Physician Documentation ---
PD HPI ABD PAIN - Stated complaint Stated Complaint: ABD PX - Chief complaint Chief Complaint: Abd Pain - History obtained from History obtained from: Patient - History of Present Illness Timing - onset: How many hours ago (5), Today (about 11 am.) Timing - details: Abrupt onset, Still present (he has baseline abd pain with liver disease but has had episodes of severe abd pain. Consideration of gallbladder and had had finding of sludge on a prior U/S.), Waxing and waning Quality: Cramping, Aching, Pain Location: RUQ, Epigastric Improved by: No: Vomiting Worsened by: Position, Palpation. No: Breathing Associated symptoms: Nausea, Vomiting. No: Fever, Hematemesis, Diarrhea ( chronc loose stool due to lactulose med.), Constipation, Melena Similar symptoms before: No diagnosis (consideration of biliary colic) Review of Systems Constitutional: reports: Myalgias. denies: Fever, Chills Nose: denies: Rhinorrhea / runny nose, Congestion Throat: denies: Sore throat Respiratory: denies: Cough GI: reports: Abdominal Pain, Nausea, Vomiting. denies: Hematemesis Neurologic: denies: Generalized weakness, Focal weakness, Numbness, Near syncope , Altered mental status PD PAST MEDICAL HISTORY - Past Medical History Cardiovascular: Other Respiratory: Pneumonia, Shortness of breath Endocrine/Autoimmune: None, Other GI: Esophageal varices, Cirrhosis : Frequency HEENT: None, Other Psych: Anxiety Musculoskeletal: Fatigue, Chronic back pain Derm: None - Past Surgical History Past Surgical History: Yes General: Appendectomy, Splenectomy, Other Ortho: Other HEENT: Cataracts - Present Medications Home Medications: Ambulatory Orders Medication Instructions Recorded Confirmed Furosemide [Lasix] 50 mg PO DAILY 02/15/17 07/06/17 Spironolactone 50 mg PO BID 04/14/17 07/06/17 Lactulose 30 gm ORAL DAILY 07/06/17 07/06/17 Dicyclomine [Bentyl] 20 mg PO QID PRN #20 capsule 12/18/17 Ondansetron HCl [Zofran] 4 mg PO QID PRN 12/18/17 12/18/17 Ondansetron Odt [Zofran] 4 mg TL Q6H PRN #15 tablet 12/18/17 Propranolol [Inderal] 20 mg PO BID 12/18/17 12/18/17 oxyCODONE [Roxicodone] 5 mg PO Q4-6H PRN #15 tablet 12/18/17 - Allergies Allergies/Adverse Reactions: Allergies Allergy/AdvReac Type Severity Reaction Status Date / Time No Known Drug Allergies Allergy Verified 12/18/17 16:47 - Social History Does the pt smoke?: No Smoking Status: Never smoker Does the pt drink ETOH?: No Does the pt have substance abuse?: No - Immunizations Immunizations are current?: Yes - POLST Patient has POLST: No PD ED PE NORMAL - Vitals Vital signs reviewed: Yes - General General: Alert and oriented X 3, Well developed/nourished, Other (appears in pain upper abd. ) - HEENT HEENT: Atraumatic, PERRL (nonicteric), Moist mucous membranes, Pharynx benign - Neck Neck: Supple, no meningeal sign, No adenopathy - Cardiac Cardiac: RRR, No murmur - Respiratory Respiratory: Clear bilaterally - Abdomen Abdomen: Soft, Non distended, No organomegaly, Other (tender upper abd epigastric and RUQ area with guarding. ). No: Normal bowel sounds (diminished) Results - Vitals Vitals: Oxygen O2 Source Room air - Labs Labs: Laboratory Tests 12/18/17 12/18/17 12/18/17 16:47 17:05 17:05 WBC 11.6 H RBC 3.58 L Hgb 13.1 L Hct 38.5 L MCV 107.8 H MCH 36.7 H MCHC 34.1 RDW 14.2 Plt Count 233 MPV 7.9 Neut # (Auto) 6.8 H Lymph # (Auto) 2.3 [place] # (Auto) 1.9 H Eos # (Auto) 0.4 Baso # (Auto) 0.1 Absolute Nucleated RBC 0.00 Band Neuts % (Manual) Not Reportable Abnorm Lymph % (Manual) Not Reportable Nucleated RBC % 0.0 Neutrophils # (Manual) Not Reportable Lymphocytes # (Manual) Not Reportable Monocytes # (Manual) Not Reportable Eosinophils # (Manual) Not Reportable Basophils # (Manual) Not Reportable Differential Comment MANUAL=AUTO DIFF Platelet Estimate NORMAL (130-450,000) Platelet Morphology 1+ LARGE PLATELETS RBC Morph Micro Appear 1+ TARGET CELLS Sodium 132 L Potassium 4.6 Chloride 102 Carbon Dioxide 24 Anion Gap 6.0 BUN 24 H Creatinine 0.8 Estimated GFR (MDRD) 110 Glucose 129 H Calcium 8.8 Total Bilirubin 2.2 H AST 70 H ALT 47 Alkaline Phosphatase 174 H Total Protein 8.1 Albumin 2.8 L Globulin 5.3 H Albumin/Globulin Ratio 0.5 L Lipase 84 H Urine Color YELLOW Urine Clarity CLEAR Urine pH 6.0 Ur Specific [place] 1.020 Urine Protein NEGATIVE Urine Glucose (UA) NEGATIVE Urine Ketones NEGATIVE Urine Occult Blood NEGATIVE Urine Nitrite NEGATIVE Urine Bilirubin NEGATIVE Urine Urobilinogen 0.2 (NORMAL) Ur Leukocyte Esterase NEGATIVE Ur Microscopic Review NOT INDICATED Urine Culture Comments NOT INDICATED - Rads (name of study) abd CT Radiology: Prelim report reviewed (gallstones without signs of cholecystitis. No obstruction. Cirrhotic liver. multiple varices. ) PD MEDICAL DECISION MAKING - ED course Complexity details: reviewed results, re-evaluated patient (feeling better after meds in ED. ), considered differential (he does have some stones in GB and has pain episodes that sound like biliary colic. This is in addition to his baseline abd pain from liver.), d/w patient - Sepsis Event Vital Signs: Oxygen O2 Source Room air Departure - Departure Disposition: Home, Self Care Clinical Impression: Recurrent biliary colic Abdominal pain Qualifiers: Abdominal location: upper abdomen, unspecified Qualified Code(s): R10.10 - Upper abdominal pain, unspecified Vomiting Qualifiers: Vomiting type: unspecified Vomiting Intractability: non-intractable Nausea presence: with nausea Qualified Code(s): R11.2 - Nausea with vomiting, unspecified Condition: Stable Record reviewed to determine appropriate education?: Yes Instructions: ED Abdominal Pain Unkn Cause, ED Gallstone W Biliary Colic Follow-Up: Otto Hines MD [Primary Care Provider] - Prescriptions: Dicyclomine [Bentyl] 20 mg PO QID PRN #20 capsule PRN Reason: Spasms Ondansetron Odt [Zofran] 4 mg TL Q6H PRN #15 tablet PRN Reason: Nausea / Vomiting oxyCODONE [Roxicodone] 5 mg PO Q4-6H PRN #15 tablet PRN Reason: Pain Comments: You do have gallstones on CT scan but no signs of inflammation of the gallbladder. Your pancreatic numbers are good. No other obvious cause of the pain at this time. It is likely given the character of the pain in the location that this is spasming of the gallbladder as a possibility. If so with a worse episode of pain and vomiting, you can try ondansetron for nausea and vomiting and add dicyclomine (Bentyl) which is an antispasmodic. If still hurting then add oxycodone for pain sparingly and just for the worst pain episodes. This would not necessarily be for your baseline pains. Follow-up with your primary care. Discharge Date/Time: 12/18/17 21:09
[2017-12-18] MEDS ORDERED: KETOROLAC 15 MG/ML VIAL IVP STA (18:04)
[2017-12-18] MEDS ORDERED: SODIUM CHLORIDE 0.9% 1,000 ML IV ONE (18:04)
[2017-12-18] MEDS ORDERED: ONDANSETRON 4 MG/2 ML VIAL IVP STA (18:04)
[2017-12-18] MEDS ORDERED: MORPHINE 10 MG/ML VIAL IVP STA ×2 (18:04→20:16)
[2017-12-18] MEDS ORDERED: IOPAMIDOL-300 100 ML VIAL ONE (18:19)
[2017-12-18 18:44] LABS: DIFFERENTIAL COMMENT MANUAL=AUTO DIFF; PLATELET ESTIMATE, MANUAL NORMAL (130-450,000) (NORMAL); PLATELET MORPHOLOGY 1+ LARGE PLATELETS (NORMAL); RBC MORPHOLOGY (MULTIPLE) 1+ TARGET CELLS (NORMAL)
[2017-12-18] MEDS ORDERED: IOPAMIDOL-300 100 ML VIAL IVP ONE (18:50)
--- NOTE | 2017-12-18 19:13 | CT Report ---
Procedure Date: 12/18/2017 Accession Number: [id number] / [id number] Procedure: CT - Abdomen/Pelvis W/ CPT Code: FULL RESULT: EXAM: CT ABDOMEN AND PELVIS EXAM DATE: 12/18/2017 06:32 PM. CLINICAL HISTORY: Upper abd pain and vomiting started this morning. COMPARISONS: 05/05/2017. TECHNIQUE: Routine helical CT imaging was performed through the abdomen and pelvis. IV contrast: ISOVUE 300 100mL. Enteric contrast: No. Reconstructions: Coronal and sagittal. In accordance with CT protocol optimization, one or more of the following dose reduction techniques were utilized for this exam: automated exposure control, adjustment of mA and/or KV based on patient size, or use of iterative reconstructive technique. FINDINGS: Lung Bases: There is a very small right-sided pleural effusion which is unchanged. Liver: There is a lobulated contour to the capsule of the liver. The liver appears heterogeneous. The portal vein is not well seen. Gallbladder/Bile Ducts: There are small gallstones in the gallbladder without focal surrounding inflammation. Spleen: Spleen is not visualized. Pancreas: No focal pancreatic lesion or duct dilation. Adrenal Glands: Normal. Kidneys: Normal. No masses or hydronephrosis. Peritoneal Cavity/Bowel: There are multiple large ventral hernias. There is herniation of omental fat and herniation of multiple anterior abdominal varices through the multiple defects. There is no herniation of bowel. There are prominent anterior abdominal varices. There is a trace amount of free fluid in the pelvis. There is small free fluid in the right upper quadrant of the abdomen. There is no free air. No mechanical bowel obstruction. There is diffuse omental fat stranding. Pelvic Organs: Urinary bladder is unremarkable. Vasculature: There are large upper abdominal varices. The hepatic veins are not visible. Possible cavernous transformation of the portal vein, not well seen. Bones: No significant abnormality. Other: None. IMPRESSION: 1. Findings of chronic liver disease with multiple large abdominal varices. 2. Small ascites. 3. Multiple upper abdominal ventral hernia defects containing omentum and herniated abdominal varices. 4. Multiple abdominal varices are seen. The portal vein is not opacified well enough to tell if it is patent or if there is cavernous transformation. 5. Very small right-sided pleural effusion. 6. Cholelithiasis RADIA
[2017-12-18 20:51] VITALS: BP 110/52
== END 2017-12-18 21:09 | disposition home or self-care (01) ==
LOC: ED 16:27
DX: K80.50 Calculus of bile duct without cholangitis or cholecystitis without obstruction (principal); K43.9 Ventral hernia without obstruction or gangrene; R18.8 Other ascites; K74.60 Unspecified cirrhosis of liver; Z90.81 Acquired absence of spleen
CPT/HCPCS: 36415; 74177; 80053; 81003; 83690; 85025; 96374; 96375; 96376; 99283; 99284; Q9967; 81001; 87086

== ENCOUNTER 2018-02-01 11:22 | Outpatient (CLI) | payer MEDICAID ==
[2018-02-01 12:00] LABS: BASOPHILS # (AUTO) 0.1 10^3/uL (0.0-0.1); BASOPHILS % (AUTO) 0.8 %; EOSINOPHILS # (AUTO) 0.5 10^3/uL (0.0-0.7); EOSINOPHILS % (AUTO) 5.6 %; HGB - HEMOGLOBIN 13.4 g/dL (14.0-18.0); LYMPHOCYTES # (AUTO) 2.4 10^3/uL (1.5-3.5); LYMPHOCYTES % (AUTO) 25.5 %; MEAN CORPUSCULAR HEMOGLOBIN 36.7 pg (27.0-31.0); MEAN CORPUSCULAR HGB CONC 34.7 g/dL (32.0-36.0); MEAN CORPUSCULAR VOLUME 105.8 fL (80.0-94.0); MEAN PLATELET VOLUME 8.3 fL (7.4-11.4); MONOCYTES # (AUTO) 1.3 10^3/uL (0.0-1.0); MONOCYTES % (AUTO) 13.8 %; NEUTROPHILS % (AUTO) 54.3 %; PLT - PLATELET COUNT 220 10^3/uL (130-450); RED BLOOD COUNT 3.65 10^6/uL (4.70-6.10); RED CELL DISTRIBUTION WIDTH 13.5 % (12.0-15.0); WHITE BLOOD COUNT 9.3 x10^3/uL (4.8-10.8)
[2018-02-01 12:05] LABS: ALBUMIN 2.7 g/dL (3.2-5.5); ALBUMIN/GLOBULIN RATIO 0.5 (1.0-2.2); BILIRUBIN,TOTAL 2.1 mg/dL (0.2-1.0); CALCIUM 9.1 mg/dL (8.5-10.3); CREATININE 0.9 mg/dL (0.6-1.2); TOTAL PROTEIN 8.1 g/dL (6.7-8.2)
[2018-02-01 12:07] LABS: INR 1.5 (0.8-1.2); PT - PROTHROMBIN TIME 16.4 secs (9.9-12.6)
== END 2018-02-01 11:23 | disposition home or self-care (01) ==
LOC: LAB 11:22
PROVIDERS: ATTEND Internal Medicine
DX: K70.31 Alcoholic cirrhosis of liver with ascites (principal); E77.9 Disorder of glycoprotein metabolism, unspecified
CPT/HCPCS: 36415; 80053; 81599; 82105; 82693; 85025; 85610

== ENCOUNTER 2018-02-06 15:51 | Outpatient (CLI) | payer MEDICAID ==
--- NOTE | 2018-02-07 08:22 | XRAY Report ---
Procedure Date: 02/06/2018 Accession Number: [id number] / [id number] Procedure: XRN - Chest 2 View X-Ray CPT Code: 10771 FULL RESULT: EXAM: Chest 2 View X-Ray DATE: 02/06/2018 4:02 PM CLINICAL HISTORY: ACUTE HYPOXEMIC RESPIRATORY FAILURE,PLEURAL EFFUSI COMPARISON: 05/11/2017. TECHNIQUE: 2 views. FINDINGS: Lungs/Pleura: No focal opacities evident. No pneumothorax or pleural effusion. Normal volumes. Mediastinum: Heart and mediastinal contours are unremarkable. Other: None. IMPRESSION: Normal 2-view chest radiography. RADIA
== END 2018-02-06 15:52 | disposition home or self-care (01) ==
LOC: DI.N 15:51
PROVIDERS: ATTEND Internal Medicine
DX: J96.01 Acute respiratory failure with hypoxia (principal); J90 Pleural effusion, not elsewhere classified; E87.79 Other fluid overload
CPT/HCPCS: 71046

== ENCOUNTER 2018-03-21 08:31 | Outpatient (CLI) | payer MEDICAID ==
--- NOTE | 2018-03-21 17:16 | Ultrasound Report ---
Reason: ALCOHOLIC CIRRHOSIS OF LIVER WITH ASCITES Procedure Date: 03/21/2018 Accession Number: [id number] / [id number] Procedure: US - Abdomen Limited CPT Code: FULL RESULT: EXAM: ABDOMEN ULTRASOUND LIMITED, RUQ EXAM DATE: 03/21/2018 09:42 AM. CLINICAL HISTORY: Alcoholic cirrhosis of liver with ascites. COMPARISON: None. TECHNIQUE: Real-time scanning was performed with static images obtained. FINDINGS: Liver: Shrunken and echogenic with nodular contour in keeping with cirrhosis. No liver masses identified, sensitivity is limited given parenchyma echotexture and echogenicity. The liver measures at least 16 cm. Main portal vein flow: Hepatopetal. Gallbladder: Gallbladder demonstrates cholelithiasis. The sonographic Boogie's sign is negative. The gallbladder wall is not thickened. Biliary System: CBD measures 4 mm. No intrahepatic or extrahepatic ductal dilatation. Other: Perihepatic ascites is noted in scant quantity. Varices are identified along the liver margin. IMPRESSION: Cirrhotic configuration of the liver. Sensitivity for masses is limited by the echogenic parenchyma. No masses seen. RADIA
== END 2018-03-21 08:32 | disposition home or self-care (01) ==
LOC: DI 08:31
PROVIDERS: ATTEND Internal Medicine
DX: K70.31 Alcoholic cirrhosis of liver with ascites (principal); F10.21 Alcohol dependence, in remission
CPT/HCPCS: 76705

== ENCOUNTER 2018-04-18 13:22 | Outpatient (CLI) | payer MEDICAID ==
[2018-04-18 13:48] LABS: BASOPHILS # (AUTO) 0.1 10^3/uL (0.0-0.1); BASOPHILS % (AUTO) 0.8 %; EOSINOPHILS # (AUTO) 0.7 10^3/uL (0.0-0.7); EOSINOPHILS % (AUTO) 6.8 %; HGB - HEMOGLOBIN 14.5 g/dL (14.0-18.0); LYMPHOCYTES # (AUTO) 2.2 10^3/uL (1.5-3.5); LYMPHOCYTES % (AUTO) 20.1 %; MEAN CORPUSCULAR HEMOGLOBIN 36.4 pg (27.0-31.0); MEAN CORPUSCULAR HGB CONC 34.8 g/dL (32.0-36.0); MEAN CORPUSCULAR VOLUME 104.6 fL (80.0-94.0); MEAN PLATELET VOLUME 8.4 fL (7.4-11.4); MONOCYTES # (AUTO) 1.4 10^3/uL (0.0-1.0); MONOCYTES % (AUTO) 13.4 %; NEUTROPHILS # (AUTO) 6.3 10^3/uL (1.5-6.6); NEUTROPHILS % (AUTO) 58.9 %; PLT - PLATELET COUNT 213 10^3/uL (130-450); RED BLOOD COUNT 3.98 10^6/uL (4.70-6.10); RED CELL DISTRIBUTION WIDTH 13.5 % (12.0-15.0); WHITE BLOOD COUNT 10.7 x10^3/uL (4.8-10.8)
[2018-04-18 13:54] LABS: INR 1.3 (0.8-1.2); PT - PROTHROMBIN TIME 14.5 secs (9.9-12.6)
[2018-04-18 14:27] LABS: ALBUMIN 3.2 g/dL (3.2-5.5); ALBUMIN/GLOBULIN RATIO 0.6 (1.0-2.2); BILIRUBIN,TOTAL 1.5 mg/dL (0.2-1.0); CALCIUM 9.2 mg/dL (8.5-10.3); CREATININE 1.1 mg/dL (0.6-1.2); TOTAL PROTEIN 8.4 g/dL (6.7-8.2)
== END 2018-04-18 13:23 | disposition home or self-care (01) ==
LOC: LAB 13:22
PROVIDERS: ATTEND Internal Medicine
DX: K92.0 Hematemesis (principal); K70.31 Alcoholic cirrhosis of liver with ascites
CPT/HCPCS: 36415; 80053; 81599; 82784; 83516; 85025; 85610

== ENCOUNTER 2018-07-17 08:00 | Outpatient (CLI) | payer MEDICAID ==
[2018-07-17 12:48] LABS: BASOPHILS # (AUTO) 0.1 10^3/uL (0.0-0.1); BASOPHILS % (AUTO) 0.6 %; EOSINOPHILS # (AUTO) 0.3 10^3/uL (0.0-0.7); EOSINOPHILS % (AUTO) 3.1 %; HGB - HEMOGLOBIN 13.9 g/dL (14.0-18.0); LYMPHOCYTES % (AUTO) 23.3 %; MEAN CORPUSCULAR HEMOGLOBIN 35.9 pg (27.0-31.0); MEAN CORPUSCULAR HGB CONC 34.9 g/dL (32.0-36.0); MEAN CORPUSCULAR VOLUME 102.9 fL (80.0-94.0); MEAN PLATELET VOLUME 9.8 fL (7.4-11.4); MONOCYTES # (AUTO) 1.4 10^3/uL (0.0-1.0); MONOCYTES % (AUTO) 16.4 %; NEUTROPHILS # (AUTO) 4.8 10^3/uL (1.5-6.6); NEUTROPHILS % (AUTO) 56.6 %; PLT - PLATELET COUNT 210 10^3/uL (130-450); RED BLOOD COUNT 3.88 10^6/uL (4.70-6.10); RED CELL DISTRIBUTION WIDTH 13.4 % (12.0-15.0); WHITE BLOOD COUNT 8.5 x10^3/uL (4.8-10.8)
[2018-07-17 12:50] LABS: INR 1.4 (0.8-1.2); PT - PROTHROMBIN TIME 15.4 secs (9.9-12.6)
[2018-07-17 13:00] LABS: PLATELET ESTIMATE, MANUAL NORMAL (130-450,000) (NORMAL); PLATELET MORPHOLOGY RARE GIANT PLATELETS (NORMAL)
[2018-07-17 13:16] LABS: ALBUMIN 3.3 g/dL (3.2-5.5); ALBUMIN/GLOBULIN RATIO 0.7 (1.0-2.2); BILIRUBIN,TOTAL 2.2 mg/dL (0.2-1.0); CREATININE 1.1 mg/dL (0.6-1.2)
== END 2018-07-17 23:59 | disposition home or self-care (01) ==
LOC: LAB.N 08:00
PROVIDERS: ATTEND Internal Medicine
DX: K70.31 Alcoholic cirrhosis of liver with ascites (principal)
CPT/HCPCS: 36415; 80053; 85025; 85610

== ENCOUNTER 2018-10-21 08:00 | Outpatient (CLI) | payer MEDICAID ==
[2018-10-21 18:52] LABS: BASOPHILS # (AUTO) 0.1 10^3/uL (0.0-0.1); BASOPHILS % (AUTO) 1.3 %; EOSINOPHILS # (AUTO) 0.3 10^3/uL (0.0-0.7); EOSINOPHILS % (AUTO) 2.7 %; HGB - HEMOGLOBIN 14.2 g/dL (14.0-18.0); LYMPHOCYTES # (AUTO) 1.9 10^3/uL (1.5-3.5); MEAN CORPUSCULAR HEMOGLOBIN 34.2 pg (27.0-31.0); MEAN CORPUSCULAR HGB CONC 33.2 g/dL (32.0-36.0); MEAN CORPUSCULAR VOLUME 103.2 fL (80.0-94.0); MEAN PLATELET VOLUME 9.3 fL (7.4-11.4); MONOCYTES # (AUTO) 1.7 10^3/uL (0.0-1.0); MONOCYTES % (AUTO) 16.1 %; NEUTROPHILS # (AUTO) 6.4 10^3/uL (1.5-6.6); NEUTROPHILS % (AUTO) 61.9 %; PLT - PLATELET COUNT 217 10^3/uL (130-450); RED BLOOD COUNT 4.15 10^6/uL (4.70-6.10); RED CELL DISTRIBUTION WIDTH 13.4 % (12.0-15.0); WHITE BLOOD COUNT 10.3 x10^3/uL (4.8-10.8)
[2018-10-21 18:56] LABS: ALBUMIN 3.4 g/dL (3.2-5.5); ALBUMIN/GLOBULIN RATIO 0.7 (1.0-2.2); BILIRUBIN,TOTAL 2.1 mg/dL (0.2-1.0); CALCIUM 9.1 mg/dL (8.5-10.3); CREATININE 1.1 mg/dL (0.6-1.2); TOTAL PROTEIN 8.2 g/dL (6.7-8.2)
[2018-10-21 19:23] LABS: INR 1.3 (0.8-1.2); PT - PROTHROMBIN TIME 14.6 secs (9.9-12.6)
== END 2018-10-21 23:59 | disposition home or self-care (01) ==
LOC: LAB.N 08:00
PROVIDERS: ATTEND Internal Medicine
DX: K70.31 Alcoholic cirrhosis of liver with ascites (principal)
CPT/HCPCS: 36415; 80053; 85025; 85610

== ENCOUNTER 2018-12-03 08:00 | Outpatient (CLI) | payer MEDICAID ==
[2018-12-03 12:06] LABS: INR 1.4 (0.8-1.2); PT - PROTHROMBIN TIME 15.3 secs (9.9-12.6)
[2018-12-03 12:14] LABS: PARTIAL THROMBOPLASTIN TIME 34.9 secs (24.9-33.3)
[2018-12-03 12:51] LABS: BASOPHILS # (AUTO) 0.1 10^3/uL (0.0-0.1); BASOPHILS % (AUTO) 1.5 %; EOSINOPHILS # (AUTO) 0.3 10^3/uL (0.0-0.7); EOSINOPHILS % (AUTO) 4.9 %; HGB - HEMOGLOBIN 14.2 g/dL (14.0-18.0); LYMPHOCYTES % (AUTO) 28.5 %; MEAN CORPUSCULAR HEMOGLOBIN 34.5 pg (27.0-31.0); MEAN CORPUSCULAR HGB CONC 33.8 g/dL (32.0-36.0); MEAN PLATELET VOLUME 9.7 fL (7.4-11.4); MONOCYTES # (AUTO) 0.9 10^3/uL (0.0-1.0); MONOCYTES % (AUTO) 12.5 %; NEUTROPHILS # (AUTO) 3.7 10^3/uL (1.5-6.6); NEUTROPHILS % (AUTO) 52.6 %; PLT - PLATELET COUNT 220 10^3/uL (130-450); RED BLOOD COUNT 4.11 10^6/uL (4.70-6.10); RED CELL DISTRIBUTION WIDTH 13.5 % (12.0-15.0)
[2018-12-03 12:52] LABS: ALBUMIN 3.1 g/dL (3.2-5.5); ALBUMIN/GLOBULIN RATIO 0.7 (1.0-2.2); BILIRUBIN,TOTAL 1.3 mg/dL (0.2-1.0); CREATININE 0.8 mg/dL (0.6-1.2); TOTAL PROTEIN 7.7 g/dL (6.7-8.2)
== END 2018-12-03 23:59 | disposition home or self-care (01) ==
LOC: LAB.N 08:00
PROVIDERS: ATTEND Physician Assistant Medical
DX: R06.01 Orthopnea (principal); R06.02 Shortness of breath; K70.30 Alcoholic cirrhosis of liver without ascites; R42 Dizziness and giddiness
CPT/HCPCS: 36415; 80053; 83880; 85025; 85610; 85730

== ENCOUNTER 2018-12-03 15:01 | Outpatient (CLI) | payer MEDICAID ==
--- NOTE | 2018-12-03 15:38 | XRAY Report ---
Reason: SOB Procedure Date: 12/03/2018 Accession Number: [id number] / [id number] Procedure: XRN - Chest 2 View X-Ray CPT Code: 77314 FULL RESULT: EXAM: CHEST RADIOGRAPHY EXAM DATE: 12/03/2018 03:19 PM. CLINICAL HISTORY: Shortness of breath. COMPARISON: CHEST 2 VIEW 02/06/2018. CHEST ANGIO 05/06/2017. TECHNIQUE: 2 views. FINDINGS: Lungs/Pleura: There is a new anterolateral right basilar airspace opacity, possibly with associated small pleural effusion. Remaining lungs are clear. No pneumothorax. Mediastinum: Despite consistent PA technique, there is subtle interval increase in size of the cardiac silhouette compared to prior, now borderline mild cardiomegaly, possibly exacerbated by poorly defined small right pleural effusion. Other: None. IMPRESSION: New airspace opacity in the right anterolateral lung base felt to possibly be at least in part due to pleural effusion. Question mild interval enlargement of the cardiac silhouette. RADIA The call report notification system was initiated by Dr. Tommy Rust at 03:28 PM on 12/03/2018. The above call report findings were discussed with Peter Lazo by Dr. Tommy Rust at 03:33 PM on 12/03/2018.
== END 2018-12-03 15:02 | disposition home or self-care (01) ==
LOC: DI.N 15:01
PROVIDERS: ATTEND Physician Assistant Medical
DX: R91.8 Other nonspecific abnormal finding of lung field (principal); K70.30 Alcoholic cirrhosis of liver without ascites; R42 Dizziness and giddiness
CPT/HCPCS: 36415; 71046; 80053; 83880; 85025; 85610; 85730

== ENCOUNTER 2018-12-19 12:39 | Outpatient (CLI) | payer MEDICAID ==
[2018-12-19 13:17] LABS: INR 1.4 (0.8-1.2); PT - PROTHROMBIN TIME 15.2 secs (9.9-12.6)
[2018-12-19 13:24] LABS: PARTIAL THROMBOPLASTIN TIME 32.7 secs (24.9-33.3)
== END 2018-12-19 12:40 | disposition home or self-care (01) ==
LOC: DI 12:39
PROVIDERS: ATTEND Physician Assistant Medical
DX: J90 Pleural effusion, not elsewhere classified (principal); Z53.9 Procedure and treatment not carried out, unspecified reason; I82.90 Acute embolism and thrombosis of unspecified vein
CPT/HCPCS: 36415; 85610; 85730

== ENCOUNTER 2019-05-02 06:40 | Outpatient (CLI) | payer MEDICAID ==
--- NOTE | 2019-05-02 09:19 | Ultrasound Report ---
Reason: HX ALCOHOLIC CIRRHOSIS Procedure Date: 05/02/2019 Accession Number: [id number] / [id number] Procedure: US - Abdomen Limited CPT Code: Final Report FULL RESULT: EXAM: ABDOMEN ULTRASOUND LIMITED, RUQ EXAM DATE: 05/02/2019 07:28 AM. CLINICAL HISTORY: History of alcoholic cirrhosis with ascites, portal hypertension, hepatic encephalopathy. History of splenectomy 2007. COMPARISON: ABDOMEN LIMITED 03/21/2018 8:49 AM. TECHNIQUE: Real-time scanning was performed with static images obtained. FINDINGS: Liver: Mild diffuse increased echogenicity and diffuse coarsened echotexture and mild nodularity of the surface are consistent with hepatic cirrhosis. No focal abnormality demonstrated. Normal size, 17.6 cm. Main portal vein flow: Hepatopetal. Gallbladder: Multiple small mobile stones. No wall thickening, dilatation, adjacent fluid or sonographic Boogie sign. Biliary System: CBD measures 4 mm. No intrahepatic or extrahepatic ductal dilatation. Other: The right kidney appears unremarkable, length 11.9 cm. The pancreas is obscured by bowel gas. Minimal ascites demonstrated. Very small right pleural effusion demonstrated. IMPRESSION: 1. Redemonstration of findings consistent with hepatic cirrhosis. No focal hepatic abnormality. 2. Cholelithiasis without ultrasound evidence of acute cholecystitis. 3. Minimal ascites demonstrated. 4. Very small right pleural effusion. RADIA
== END 2019-05-02 06:41 | disposition home or self-care (01) ==
LOC: DI 06:40
PROVIDERS: ATTEND Nurse Practitioner
DX: K70.31 Alcoholic cirrhosis of liver with ascites (principal); K76.6 Portal hypertension; K72.90 Hepatic failure, unspecified without coma; K80.20 Calculus of gallbladder without cholecystitis without obstruction; J90 Pleural effusion, not elsewhere classified
CPT/HCPCS: 76705

== ENCOUNTER 2019-09-05 17:18 | Emergency (ER) | payer MEDICAID ==
--- NOTE | 2019-09-05 18:15 | ED Physician Documentation ---
PD HPI DYSPNEA - Stated complaint Stated Complaint: SOA, CHILLS, NAUSEA - Chief complaint Chief Complaint: Cardiac - History obtained from History obtained from: Patient - History of Present Illness Timing - onset: Yesterday (38-year-old gentleman with history of alcoholic cirrhosis, last drink about 2-1/2 years ago presents with an illness that started yesterday marked by nausea and vomiting yesterday better today. He is also had diarrhea. Some stomach cramps, shortness of breath, minimal cough. Chills but no measured fever. No recent travel.) Review of Systems Constitutional: reports: Chills. denies: Fever Throat: denies: Dental pain / toothache, Sore throat Cardiac: denies: Chest pain / pressure, Palpitations Respiratory: denies: Dyspnea, Cough PD PAST MEDICAL HISTORY - Past Medical History Cardiovascular: Other Respiratory: Pneumonia, Shortness of breath Endocrine/Autoimmune: None, Other GI: Esophageal varices, Cirrhosis : Frequency HEENT: None, Other Psych: Anxiety Musculoskeletal: Fatigue, Chronic back pain Derm: None - Past Surgical History Past Surgical History: Yes General: Appendectomy, Splenectomy, Other Ortho: Other HEENT: Cataracts - Present Medications Home Medications: Ambulatory Orders Medication Instructions Recorded Confirmed Furosemide [Lasix] 50 mg PO DAILY 02/15/17 07/06/17 Spironolactone 50 mg PO BID 04/14/17 07/06/17 Lactulose 30 gm ORAL DAILY 07/06/17 07/06/17 Dicyclomine [Bentyl] 20 mg PO QID PRN #20 capsule 12/18/17 Ondansetron Odt [Zofran] 4 mg TL Q6H PRN #15 tablet 12/18/17 Propranolol [Inderal] 20 mg PO BID 12/18/17 12/18/17 - Allergies Allergies/Adverse Reactions: Allergies Allergy/AdvReac Type Severity Reaction Status Date / Time No Known Drug Allergies Allergy Verified 12/18/17 16:47 - Social History Does the pt smoke?: No Smoking Status: Never smoker Does the pt drink ETOH?: No Does the pt have substance abuse?: No - Immunizations Immunizations are current?: Yes - POLST Patient has POLST: No PD ED PE NORMAL - Vitals Vital signs reviewed: Yes - General General: Alert and oriented X 3, No acute distress - HEENT HEENT: PERRL, EOMI - Neck Neck: Supple, no meningeal sign, No bony TTP - Cardiac Cardiac: RRR, No murmur - Respiratory Respiratory: Other (Pretty symmetric breath sounds may be mildly diminished at the right base but if so would be very subtle) - Abdomen Abdomen: Soft, Non tender - Back Back: No CVA TTP, No spinal TTP - Derm Derm: Normal color, Warm and dry - Extremities Extremities: No edema, No calf tenderness / cord - Neuro Neuro: Alert and oriented X 3, No motor deficit, No sensory deficit, Normal speech Results - Vitals Vitals: Vital Signs - 24 hr 09/05/19 09/05/19 17:24 19:05 Temperature 36.8 C 37.2 C Heart Rate 67 53 L Respiratory 18 20 Rate Blood Pressure 124/86 H 123/82 H O2 Saturation 99 97 Oxygen O2 Source Room air - EKG (time done) 1733 Rate: Rate (enter#) (56) Rhythm: NSR [place]: Normal Intervals: Normal MO QRS: Normal Ischemia: Normal ST segments Computer interpretation: Agree with computer - Labs Labs: Laboratory Tests 09/05/19 09/05/19 09/05/19 18:18 18:18 18:19 WBC 9.1 RBC 4.54 L Hgb 15.5 Hct 43.8 MCV 96.5 H MCH 34.1 H MCHC 35.4 RDW 14.6 Plt Count 216 MPV 11.0 Neut # (Auto) 4.5 Lymph # (Auto) 3.0 [place] # (Auto) 1.3 H Eos # (Auto) 0.3 Baso # (Auto) 0.1 Absolute Nucleated RBC 0.00 Nucleated RBC % 0.0 Sodium 137 Potassium 3.4 L Chloride 106 Carbon Dioxide 22 Anion Gap 9.0 BUN 12 Creatinine 0.8 Estimated GFR (MDRD) 109 Glucose 97 Calcium 8.7 Total Bilirubin 1.6 H AST 58 H ALT 40 Alkaline Phosphatase 168 H Total Protein 7.8 Albumin 3.4 Globulin 4.4 H Albumin/Globulin Ratio 0.8 L Lipase 43 Influenza A (Rapid) Negative Influenza B (Rapid) Negative - Rads (name of study) 2v chest Radiology: EMP read contemporaneously (Right lung basilar scarring without acute disease) PD MEDICAL DECISION MAKING - ED course ED course: This young man with what sounds like a viral syndrome more than anything else. He does not fit current CDC criteria for coronavirus testing. He does have comorbidities and a history of pleural effusion although I do not think this is present clinically we will check a chest x-ray and flu swab as well as basic labs. Departure - Departure Disposition: 01 Home, Self Care Clinical Impression: Viral syndrome Condition: Good Record reviewed to determine appropriate education?: Yes Instructions: ED Viral Syndrome Comments: There is no fluid in your right lung, no pneumonia. Your black blood work actually looks pretty reassuring given your history of cirrhosis. Flu swab was negative. Seems like a nonspecific viral syndrome. Return if worse or if not better in the next 3 to 4 days.
[2019-09-05 18:29] LABS: BASOPHILS # (AUTO) 0.1 10^3/uL (0.0-0.1); BASOPHILS % (AUTO) 1.1 %; EOSINOPHILS # (AUTO) 0.3 10^3/uL (0.0-0.7); HGB - HEMOGLOBIN 15.5 g/dL (14.0-18.0); LYMPHOCYTES % (AUTO) 32.5 %; MEAN CORPUSCULAR HEMOGLOBIN 34.1 pg (27.0-31.0); MEAN CORPUSCULAR HGB CONC 35.4 g/dL (32.0-36.0); MEAN CORPUSCULAR VOLUME 96.5 fL (80.0-94.0); MONOCYTES # (AUTO) 1.3 10^3/uL (0.0-1.0); MONOCYTES % (AUTO) 14.2 %; NEUTROPHILS # (AUTO) 4.5 10^3/uL (1.5-6.6); PLT - PLATELET COUNT 216 10^3/uL (130-450); RED BLOOD COUNT 4.54 10^6/uL (4.70-6.10); RED CELL DISTRIBUTION WIDTH 14.6 % (12.0-15.0); WHITE BLOOD COUNT 9.1 x10^3/uL (4.8-10.8)
[2019-09-05 18:40] LABS: ALBUMIN 3.4 g/dL (3.2-5.5); ALBUMIN/GLOBULIN RATIO 0.8 (1.0-2.2); BILIRUBIN,TOTAL 1.6 mg/dL (0.2-1.0); CALCIUM 8.7 mg/dL (8.5-10.3); CREATININE 0.8 mg/dL (0.6-1.2); TOTAL PROTEIN 7.8 g/dL (6.7-8.2)
--- NOTE | 2019-09-05 18:52 | XRAY Report ---
Reason: cough dyspnea Procedure Date: 09/05/2019 Accession Number: [id number] / [id number] Procedure: XR - Chest 2 View X-Ray CPT Code: 35919 Final Report FULL RESULT: EXAM: CHEST RADIOGRAPHY EXAM DATE: 09/05/2019 06:31 PM. CLINICAL HISTORY: Cough dyspnea. COMPARISON: CHEST 2 VIEW 12/03/2018 3:19 PM CHEST 2 VIEW 02/06/2018 4:06 PM ABDOMEN LIMITED 05/02/2019 6:45 AM. TECHNIQUE: 2 views. FINDINGS: Lungs/Pleura: No acute consolidation. Chronic appearing peripheral opacity and pleural thickening or small pleural effusion at the right lung base. No pleural effusion. No pneumothorax. Normal volumes. Mediastinum: Heart and mediastinal contours are unremarkable. Other: None. IMPRESSION: No acute cardiopulmonary abnormality. Right lung base scarring. RADIA
[2019-09-05 19:06] VITALS: BP 123/82
== END 2019-09-05 19:11 | disposition home or self-care (01) ==
LOC: ED 17:18
DX: B34.9 Viral infection, unspecified (principal); K70.30 Alcoholic cirrhosis of liver without ascites; F10.21 Alcohol dependence, in remission
CPT/HCPCS: 36415; 71046; 80053; 83690; 85025; 87275; 87276; 93005; 99284

== ENCOUNTER 2020-04-04 10:56 | Outpatient (CLI) | payer MEDICAID, MEDICARE ==
--- NOTE | 2020-04-05 06:27 | Ultrasound Report ---
PROCEDURE: Abdomen Limited INDICATIONS: PHTN, ALCOHOLIC CIRRHOSIS OF LIVER TECHNIQUE: Real-time focused scanning was performed of the abdomen, with image documentation. COMPARISON: May 02, 2019 ultrasound abdomen FINDINGS: Cirrhotic morphology liver. Liver length of 18 cm. Gallbladder is distended. Gallbladder wall thickness measuring up to 12 mm. Multiple layering gallsto jairo. Common bile diameter of 3 mm, within normal limits. Right kidney length of 11.4 cm with cortical thickness of 1.6 cm. No hydronephrosis. Pancreas is not well visualized due to overlying bowel gas. Inferior vena cava is patent. Dilated varicose epigastric vessels seen in the abdominal wall. IMPRESSION: Cholelithiasis. Additionally, there is thickening of the gallbladder wall. In the appropriate clinica l context, this represent acute calculus cholecystitis. However, additional causes of gallbladder wal l thickening include portal hypertension, volume overload, hepatitis, and pancreatitis. Correlate cli nically. A hepatobiliary scan could be performed for further evaluation for acute cholecystitis. Thou gh, in the setting of diminished liver function may be limited in its utility. Cirrhosis Reviewed by: Archie Maire on 04/04/2020 3:56 PM SHRUTHI Approved by: Archie Marie on 04/04/2020 3:56 PM SHRUTHI Station ID: [id number]
== END 2020-04-04 10:57 | disposition home or self-care (01) ==
LOC: DI 10:56
DX: K76.6 Portal hypertension (principal); K70.31 Alcoholic cirrhosis of liver with ascites; I85.10 Secondary esophageal varices without bleeding; K80.20 Calculus of gallbladder without cholecystitis without obstruction
CPT/HCPCS: 76705

== ENCOUNTER 2020-07-19 10:37 | Outpatient (CLI) | payer MEDICARE ==
[2020-07-19 11:40] LABS: C. PNEUMONIAE- RESP PCR PANEL NOT DETECTED
== END 2020-07-19 10:38 | disposition home or self-care (01) ==
LOC: LAB 10:37
PROVIDERS: ATTEND Internal Medicine
DX: Z01.812 Encounter for preprocedural laboratory examination (principal); Z20.822 Contact with and (suspected) exposure to COVID-19
CPT/HCPCS: 0202U

== ENCOUNTER 2021-01-20 16:36 | Outpatient (CLI) | payer MEDICARE | END 2021-01-20 16:37 | disposition home or self-care (01) | LOC: COV 16:36 | PROVIDERS: ATTEND Family Medicine | DX: Z20.822 Contact with and (suspected) exposure to COVID-19 (principal) ==

== ENCOUNTER 2022-02-27 07:01 | Outpatient (CLI) | payer MEDICARE ==
--- NOTE | 2022-02-27 09:01 | Ultrasound Report ---
PROCEDURE: Abdomen Limited INDICATIONS: Alcoholic cirrhosis of the liver with ascites TECHNIQUE: Real-time focused scanning was performed of the abdomen, with image documentation. COMPARISON: 04/04/2020 abdominal ultrasound FINDINGS: Nodular liver with coarsened hepatic echotexture and right hepatic lobe atrophy indicative of cirrhosis. Moderate volume ascites. No liver mass identified. No intrahepatic or extrahepatic cl iary ductal dilatation. There are a few gallstones within the gallbladder. Gallbladder is otherwise n ormal. Pancreas is obscured by bowel gas. Right kidney is normal. Patient is status post splenectomy. IMPRESSION: Cirrhosis with ascites and varices. Reviewed by: Román Matute MD on 02/27/2022 9:00 AM PDT Approved by: Román Matute MD on 02/27/2022 9:00 AM PDT Station ID: [id number]
== END 2022-02-27 07:02 | disposition home or self-care (01) ==
LOC: DI 07:01
PROVIDERS: ATTEND Internal Medicine
DX: K70.31 Alcoholic cirrhosis of liver with ascites (principal)

== ENCOUNTER 2022-09-18 14:24 | Outpatient (CLI) | payer MEDICARE, MEDICAID ==
[2022-09-18 14:35] LABS: BASOPHILS # (AUTO) 0.1 10^3/uL (0.0-0.1); BASOPHILS % (AUTO) 1.6 %; EOSINOPHILS # (AUTO) 0.4 10^3/uL (0.0-0.7); EOSINOPHILS % (AUTO) 7.3 %; HCT - HEMATOCRIT 42.4 % (42.0-52.0); LYMPHOCYTES # (AUTO) 1.9 10^3/uL (1.5-3.5); LYMPHOCYTES % (AUTO) 36.6 %; MEAN CORPUSCULAR HEMOGLOBIN 34.9 pg (27.0-31.0); MEAN CORPUSCULAR HGB CONC 35.4 g/dL (32.0-36.0); MEAN CORPUSCULAR VOLUME 98.6 fL (80.0-94.0); MEAN PLATELET VOLUME 10.2 fL (7.4-11.4); MONOCYTES # (AUTO) 0.7 10^3/uL (0.0-1.0); MONOCYTES % (AUTO) 13.2 %; NEUTROPHILS # (AUTO) 2.1 10^3/uL (1.5-6.6); NEUTROPHILS % (AUTO) 41.1 %; PLT - PLATELET COUNT 196 10^3/uL (130-450); RED CELL DISTRIBUTION WIDTH 15.7 % (12.0-15.0); WHITE BLOOD COUNT 5.1 x10^3/uL (4.8-10.8)
[2022-09-18 14:45] LABS: ALBUMIN 2.8 g/dL (3.2-5.5); ALBUMIN/GLOBULIN RATIO 0.6 (1.0-2.2); BILIRUBIN,TOTAL 1.9 mg/dL (0.2-1.0); CALCIUM 7.9 mg/dL (8.5-10.3); CREATININE 0.8 mg/dL (0.6-1.2); POTASSIUM 3.5 mmol/L (3.5-5.0); TOTAL PROTEIN 7.5 g/dL (6.7-8.2)
== END 2022-09-18 14:25 | disposition home or self-care (01) ==
LOC: LAB 14:24
PROVIDERS: ATTEND Nurse Practitioner
DX: K70.30 Alcoholic cirrhosis of liver without ascites (principal)
CPT/HCPCS: 36415; 80053; 85025